=== PATIENT | female | born 1965 | race Caucasian/White ===

== ENCOUNTER 2017-11-07 07:18 | Inpatient (IN) ==
[2017-11-07] MEDS ORDERED: Morphine Inj 4 MG/ML Vial IV.PUSH ONE ×2 (07:46→09:00)
[2017-11-07] MEDS ORDERED: LORazepam 1 MG Tablet PO PRN (07:48)
[2017-11-07] MEDS ORDERED: Haloperidol Inj 5 MG/ML Ampul IV.PUSH PRN (07:48)
--- NOTE | 2017-11-07 08:05 | ED ---
HPI General Chief Complaint: Abdominal Pain Stated Complaint: abd pain x 3 hrs- bilat back pains Time Seen by Provider: 11/07/17 07:28 Source: patient Mode of arrival: ambulatory Limitations: no limitations History of Present Illness complaint: abdominal pain Onset (ago): hour(s) (3) Pain Consistency: constant Location: epigastric Severity: severe Quality: aching Radiation: back Relieving factors: other (leaning forward) Exacerbating factors: other (laying down flat on her back) Context: other (admits to 5 drinks/day. h/o pancreatitis.) Associated symptoms: nausea and diarrhea Related Data Home Medications Medication Instructions Recorded Confirmed gemfibrozil 600 mg PO BID 11/07/17 11/07/17 pantoprazole 40 mg PO DAILY 11/07/17 11/07/17 Allergies Allergy/AdvReac Type Severity Reaction Status Date / Time codeine Allergy Severe Rash Verified 11/07/17 07:25 Review of Systems Constitutional Reports system reviewed and no additional complaints, except as [facility] Eyes Reports system reviewed and no additional complaints, except as [facility] ENT Reports system reviewed and no additional complaints, except as [facility] Cardiovascular Reports system reviewed and no additional complaints, except as docu and Reports rapid heart rate Respiratory Reports system reviewed and no additional complaints, except as docu Gastrointestinal Reports abdominal pain, Reports diarrhea and Reports nausea Genitourinary Reports system reviewed and no additional complaints, except as docu Musculoskeletal Reports system reviewed and no additional complaints, except as docu Integumentary/Breasts Reports system reviewed and no additional complaints, except as docu Neurologic Reports tremor(s) Psychiatric Reports system reviewed and no additional complaints, except as docu Endocrine Reports system reviewed and no additional complaints, except as [facility] Hematologic/Lymphatic Reports system reviewed and no additional complaints, except as docu Allergic/Immunologic Reports system reviewed and no additional complaints, except as docu PMFSH History History Provided By: Patient Medical History Medical History ETOH abuse (Acute) GERD (gastroesophageal reflux disease) (Acute) Hyperlipidemia (Acute) Surgical History Surgical History History of cholecystectomy (Acute) Social History Social History Substance History: No History of Abuse Smoking Status: Current every day smoker Tobacco Type: Cigarettes How Often Do You Have a Drink Containing Alcohol: 4 or more times a week Recent Travel in [facility] within the Last 8 Weeks: No Recent Out of Country Travel within the Last 8 Weeks: No Exam Const General: cooperative, well developed and in distress Nutritional Appearance: well nourished Orientation: alert, awake and oriented x3 HENMT Head: normal to inspection, normocephalic and atraumatic Mouth: moist mucous membranes Eyes Alignment and Position: alignment normal Conjunctivae: conjunctivae normal Sclera: sclerae normal EOM: EOM intact bilaterally Neck Neck: normal visual inspection and full ROM Chest Chest: normal inspection of the chest Resp Effort & Inspection: normal respiratory effort Auscultation: clear to auscultation bilaterally Cardio Rate: tachycardic Rhythm: regular rhythm Heart Sounds: S1 normal and S2 normal GI Inspection: normal to inspection Palpation: soft and tender in the epigastrum, in the LUQ and in the RUQ Auscultation: normal bowel sounds Back/Spine/Pelvis Cervical Spine: cervical ROM normal Thoracic/Lumbar Spine: thoraco-lumbar ROM normal Skin General: other (spider angiomas noted on her chest ) Neuro General: alert, awake, oriented x3, moves all extremities and CN's II-XI intact bilaterally Speech: speech normal Motor: tremor Extrem General: normal to inspection and full ROM Psych Appearance: grossly normal Mental Status: mental status grossly normal Speech and Movement: speech and movement normal Mood: congruent mood Affect: normal affect Attitude: cooperative Thought Process: normal Thought Content: normal Judgment: fair Course Consultations Consultation #1: Dr. Cardoza will admit to the hospital for further evaluation and treatment Time: 09:04 Initial Documented Vital Signs Temperature 97.7 F 11/07/17 07:23 Pulse Rate 107 H 11/07/17 07:23 Respiratory Rate 16 11/07/17 07:23 Blood Pressure 137/84 11/07/17 07:23 Pulse Oximetry 99 11/07/17 07:23 Last Documented Vital Signs Temperature 97.7 F 11/07/17 07:23 Pulse Rate 95 H 11/07/17 08:15 Respiratory Rate 20 11/07/17 08:15 Blood Pressure 131/72 11/07/17 08:15 Pulse Oximetry 97 11/07/17 08:15 Medical Decision Making [facility] Narrative Medical decision making narrative: 52 year old female presents to the ED with cc of abdominal pain x 3 hrs. Describes it as severe achy pain that is felt in her epigastric region and radiates around to her back bilaterally. Leaning forward improves the pain. She also has nausea and diarrhea. Denies fever, chills, dysuria. She reports drinking 5 drinks daily and has a history of pancreatitis in the past. Her presentation is most consistent with acute pancreatitis. Will keep patient NPO and start on IV pain management. Will also elder counselor patient on alcohol use cessation. The patient's laboratory and radiographic evaluation is now complete and compatible with pancreatitis. Her history leads one to believe that she has alcoholic pancreatitis. However, she has gallstones on her CT. The patient reported a history of a previous cholecystectomy and has laparotomy scars compatible with a previous cholecystectomy. An ultrasound has subsequently been ordered for further evaluation of this. The patient has also been found to have hyponatremia and hypokalemia. Her potassium is being replaced orally. Medical Screen Exam Complete: Yes Emergency Medical Condition: Yes Differential Diagnosis Differential Diagnosis: acute pancreatitis vs. hepatitis vs. gastritis vs. gastroenteritis vs. peptic ulcer disease Medical Records Medical records reviewed: Yes I reviewed the patient's medical records. Lab Data Lab results reviewed: Yes I reviewed the patient's lab results. Lab results narrative: Electrolytes are compatible with alcoholism. Lipase shows pancreatitis. Result diagrams: 11/07/17 07:43 11/07/17 07:43 Lab Results 11/07/17 11/07/17 11/07/17 Range/Units 07:43 07:43 08:01 CBC w Diff Slide review pending WBC 13.0 H (4.0-11.0) th/mm3 RBC 3.79 L (4.00-5.30) mil/mm3 Hgb 14.2 (11.6-15.3) gm/dL Hct 39.5 (35.0-46.0) % MCV 104.5 H (80.0-100.0) fL MCH 37.5 H (27.0-34.0) pg MCHC 35.9 (32.0-36.0) % RDW 14.2 (11.6-17.2) % Plt Count 162 (150-450) th/mm3 MPV 9.1 (7.0-11.0) fL Neut % (Auto) 72.2 H (16.0-70.0) % Lymph % (Auto) 19.5 (9.0-44.0) % [place] % (Auto) 5.6 (0.0-8.0) % Eos % (Auto) 1.1 (0.0-4.0) % Baso % (Auto) 1.6 (0.0-2.0) % Neut # (Auto) 9.5 H (1.8-7.7) th/mm3 Lymph # (Auto) 2.5 (1.0-4.8) th/mm3 [place] # (Auto) 0.7 (0.0-0.9) th/mm3 Eos # (Auto) 0.1 (0.0-0.4) th/mm3 Baso # (Auto) 0.2 (0.0-0.2) th/mm3 WBC Differential . Diff Scan Auto diff confirmed Differential Comment . Hematology Comments Sodium 127 L (136-145) meq/L Potassium 2.9 L* (3.5-5.1) meq/L Chloride 91 L (98-107) meq/L Carbon Dioxide 17.8 L (21.0-32.0) meq/L Anion Gap 18 H (5-15) meq/L BUN 7 (7-18) mg/dL Creatinine 0.81 (0.50-1.00) mg/dL Estimated GFR 75 L (>89) mL/min Random Glucose 241 H (74-106) mg/dL Calcium (8.5-10.1) mg/dL Total Bilirubin 1.1 H (0.2-1.0) mg/dL AST 88 H (15-37) U/L ALT 69 H (10-53) U/L Alkaline Phosphatase 112 (45-117) U/L Total Protein 7.7 (6.4-8.2) g/dL Albumin 3.3 L (3.4-5.0) g/dL Lipase 8184 H (73-393) U/L Ur Collection Type Clean catch Urine Color Yellow (Yellw/Straw) Urine Clarity Slight H (Clear) Urine pH 5.5 (5.0-8.5) Ur Specific [place] Greater/equal 1.030 (1.002-1.035) Urine Protein 100 H (Neg-Trace) mg/dL Urine Glucose (UA) Negative (Negative) mg/dL Urine Ketones Trace H (Negative) mg/dL Urine Occult Blood Small H (Negative) Urine Nitrate Negative (Negative) Urine Bilirubin Negative (Negative) Urine Ictotest Negative (Negative) Urine Urobilinogen 0.2 (Less than 2) mg/dL Ur Leukocyte Esterase Negative (Negative) Urine RBC 0-3 (0-3) /hpf Ur Squamous Epith Cells 0-5 (0-5) /hpf Amorphous Sediment Few H (None) /hpf Urine Bacteria Moderate H (None) /hpf Hyaline Casts 4-10 H (0-3) /lpf Fine Granular Casts 4-10 H (None) /lpf Micro UA Comment Culture indicated Ur Microscopic Review Microscopic reviewed Urine Culture Comments Culture indicated Imaging Data Radiologist's impression: Abdomen/Pelvis CT 11/07/17 07:46 CONCLUSION: 1. Mild indurative changes adjacent to the pancreatic head and proximal body and around the duodenum. 2. Hepatic steatosis. 3. Gallstones. 4. Mild extrahepatic biliary ductal dilatation. Discharge Plan Discharge Disposition Patient Disposition: 30 Still Patient Discharge Details Diagnosis: Abdominal pain, Acute pancreatitis, Hypokalemia, Acute hyponatremia, Gallstones Physicians Team ED Provider: Barbara Enriquez Primary Care Provider: Primary Care Renate Brownlee Rxs /Orders / Referrals /Forms Prescriptions: No Action gemfibrozil 600 mg Tablet 600 mg PO BID RF: 0 pantoprazole 40 mg Tablet,Delayed Release (Dr/Ec) 40 mg PO DAILY RF: 0 Discharge Interventions Interventions: Vital Signs Last Done: 11/07/17 08:15 Status ED Status: Pending Admission
[2017-11-07 08:08] LABS: Albumin 3.3 g/dL (3.4-5.0); Alkaline Phosphatase 112 U/L (45-117); Anion Gap 18 meq/L (5-15); Carbon Dioxide 17.8 meq/L (21.0-32.0); Chloride 91 meq/L (98-107); Glomerular Filtration Rate 75 mL/min (>89); Glucose,Random 241 mg/dL (74-106); Lipase 8184 U/L (73-393)
[2017-11-07 08:09] LABS: Sodium 127 meq/L (136-145)
[2017-11-07 08:11] LABS: Potassium 2.9 meq/L (3.5-5.1)
[2017-11-07 08:13] LABS: Color,Urine Yellow (Yellw/Straw); Glucose,Urine (UA) Negative (Negative); Leukocyte Esterase,Urine Negative (Negative); Nitrite,Urine Negative (Negative); PH,Urine 5.5 (5.0-8.5); Specific Gravity,Urine Greater/Equal 1.030 (1.002-1.035); Urobilinogen,Urine 0.2 mg/dL (Less than 2)
[2017-11-07] MEDS ORDERED: Sod Chloride 0.9% Inj 1,000 ML IV.SIG SCH (08:15)
[2017-11-07 08:20] LABS: Bilirubin,Urine Negative (Negative); Clarity,Urine Slight (Clear); Ictotest,Urine Negative (Negative)
[2017-11-07] MEDS ORDERED: Potassium Chloride 10 MEQ ER Capsule PO ONE (08:21)
[2017-11-07 08:22] LABS: Bacteria,Urine Moderate /hpf; RBC,Urine 0-3 /hpf (0-3); Squamous Epithelial Cell,Urine 0-5 /hpf (0-5)
[2017-11-07 08:23] LABS: Amorphous Sediment,Urine Few /hpf
[2017-11-07 08:23] LABS: Blood Urea Nitrogen 7 mg/dL (7-18); Total Protein 7.7 g/dL (6.4-8.2)
[2017-11-07 08:28] LABS: Baso # (Auto) 0.2 th/mm3 (0.0-0.2); Baso % (Auto) 1.6 % (0.0-2.0); Eos # (Auto) 0.1 th/mm3 (0.0-0.4); Eos % (Auto) 1.1 % (0.0-4.0); Hematocrit 39.5 % (35.0-46.0); Hemoglobin 14.2 gm/dL (11.6-15.3); Lymph # (Auto) 2.5 th/mm3 (1.0-4.8); Lymph % (Auto) 19.5 % (9.0-44.0); Mean Corpuscular HGB Conc 35.9 % (32.0-36.0); Mean Corpuscular Hemoglobin 37.5 pg (27.0-34.0); Mean Corpuscular Volume 104.5 fL (80.0-100.0); Mean Platelet Volume 9.1 fL (7.0-11.0); Mono # (Auto) 0.7 th/mm3 (0.0-0.9); Mono % (Auto) 5.6 % (0.0-8.0); Neut # (Auto) 9.5 th/mm3 (1.8-7.7); Neut % (Auto) 72.2 % (16.0-70.0); Platelet Count 162 th/mm3 (150-450); Red Blood Count 3.79 mil/mm3 (4.00-5.30); Red Cell Distribution Width 14.2 % (11.6-17.2)
[2017-11-07 08:37] LABS: Alanine Aminotransferase 69 U/L (10-53); Aspartate Aminotransferase 88 U/L (15-37)
--- NOTE | 2017-11-07 08:42 | CT ---
EXAM DATE: 11/07/2017 8:35 AM EDT AGE/SEX: 52 years / Female INDICATIONS: Epigastric pain. Low back pain. Nausea. CLINICAL DATA: This is the patient's initial encounter. Patient reports that signs and symptoms have been present for 1 day and indicates a pain score of 10/10. MEDICAL/SURGICAL HISTORY: Gastroesophageal reflux disease. Cholecystectomy. ORAL CONTRAST: No oral contrast ingested. RADIATION DOSE: 6.93 CTDI (mGy) COMPARISON: [facility], CT ABDOMEN & PELVIS W CONTRAST, 06/23/2012. . TECHNIQUE: Multiple contiguous axial images were obtained through the abdomen and pelvis following b olus infusion of 90 ml Omnipaque 350 (iohexol) nonionic water-soluble contrast as a single exam dos e. No oral contrast ingested. Using automated exposure control and adjustment of the mA and/or kV ac cording to patient size, radiation dose was kept as low as reasonably achievable to obtain optimal di agnostic quality images. DICOM format image data is available electronically for review and comparis on. FINDINGS: Lower Lungs: The visualized lower lungs are clear. Liver: Diffusely diminished attenuation in the liver suggesting steatosis. Gallstones in the gallblad linda. Extrahepatic biliary tree is mildly dilated with common duct exceeding 10 mm Spleen: Homogeneous density without enlargement. Pancreas: There is mild haziness in the peripancreatic tissues around the pancreatic head and proxim al body with some similar hypodensity around the proximal duodenum, possibly minimal fluid. This may reflect mild pancreatitis and/or duodenitis. Kidneys: Normal in size and shape. No evidence of mass or hydronephrosis. Adrenal Glands: Unremarkable. Aorta: The aorta and proximal iliac vessels are grossly unremarkable without aneurysmal dilation. Bowel/Mesentery: The bowel loops are grossly unremarkable. The cecum and sigmoid colon have a normal configuration. Abdominal Wall: Intact. Retroperitoneum: No evidence of adenopathy in the retrocrural, para-aortic, or deep pelvic regions. Bladder: Contours are smooth. Reproductive Organs: Small bilateral adnexal cysts. No free pelvic fluid. Inguinal: The inguinal region is unremarkable without evidence of adenopathy. Bony Structures: Unremarkable. CONCLUSION: 1. Mild indurative changes adjacent to the pancreatic head and proximal body and around the duodenum . 2. Hepatic steatosis. 3. Gallstones. 4. Mild extrahepatic biliary ductal dilatation. Electronically signed by: Juan Eason MD 11/07/2017 8:41 AM EDT
[2017-11-07] MEDS ORDERED: Potassium Chloride 20 MEQ Pwd Pkt PO ONE (09:00)
[2017-11-07] MEDS ORDERED: Acetaminophen 325 MG Tablet PO PRN (09:04)
[2017-11-07] MEDS ORDERED: Bisacodyl 10 MG Supp RECTAL PRN (09:04)
--- NOTE | 2017-11-07 10:40 | US ---
EXAM DATE: 11/07/2017 10:11 AM EDT AGE/SEX: 52 years / Female INDICATIONS: Abnormal CT. CLINICAL DATA: This is the patient's subsequent encounter. Patient reports that signs and symptoms h ave been present for 1 day and indicates a pain score of 8/10. MEDICAL/SURGICAL HISTORY: Gastroesophageal reflux disease. Cholecystectomy. COMPARISON: [facility], CT ABDOMEN & PELVIS W CONTRAST, 06/23/2012. . MEASUREMENTS: Liver:__ 16.8 cm. Common Bile Duct:__ 12mm. FINDINGS: Liver: Increased echotexture without focal lesion or ductal dilation. Portal Vein: Hepatopedal flow seen in portal vein. Common Duct: Dilated slightly greater than a centimeter Gallbladder: Stones present in a small cystic cavity in the region of the medial gallbladder fossa Pancreas: The visualized portions are within normal limits Right Kidney: Normal echotexture and cortical thickness. No mass or hydronephrosis. Other: CONCLUSION: 1. Stones present in presumed dilated cystic duct remnant post stated previous cholecystectomy 2. Extrahepatic biliary ductal dilatation without clear explanation Electronically signed by: Juan Eason MD 11/07/2017 10:38 AM EDT
[2017-11-07] MEDS: Sod Chloride 0.9% Inj 1,000 ML IV.CONT SCH ×2 (11:03→15:14)
[2017-11-07] MEDS: Enoxaparin Inj 40 MG/0.4 ML Syringe SQ SCH (11:24)
--- NOTE | 2017-11-07 11:42 | P.HP ---
History of Present Illness Primary Care Physician: No Primary Care Physician Chief Complaint: Abdominal pain History of Present Illness: 52-year-old female with known history of chronic alcohol abuse, chronic abdominal pain, Gastrosoft reflux who presented to the hospital because acute onset of abdominal pain. Patient states that over the last 6 months she has been experiencing a rather constant abdominal discomfort located in the right upper quadrant under her ribs with associated heartburn. She indicates that in July she did undergo EGD and colonoscopy by a physician located in the [facility]. She does not know the name of the physician. Patient states that she has been tolerating her pain, she did have a CT ordered for further evaluation in September, however due to insurance reasons she was unable to do it. Patient indicates that over the last 6 months her pain has been a 5/10 on a pain scale. When she woke up this morning it was 10/ 10 on a pain scale. Patient indicates this morning that the pain was located in the epigastric region as well as her chronic right upper quadrant pain. She has some nausea and dry heaves. Denied any hematemesis, patient states that she has chronic diarrhea is been no change in her bowel movements. Denies any melena or hematochezia. Patient had workup done emergency department found to have multiple medical problems related to her abdominal pain, alcohol use. Patient states that she drinks anywhere from 3-10 mixed drinks daily. The longest that she is ever gone without alcohol was 3 days. - Diagnosis (1) Sepsis (2) Obstruction of cystic duct (3) Abdominal pain (4) Acute pancreatitis (5) Hypokalemia (6) Acute hyponatremia (7) Urinary tract infection (8) Metabolic acidosis, increased anion gap Inpatient Certification: I certify that the inpatient services were ordered in accordance with Medicare regulations governing the order. This includes certification that hospital inpatient services are reasonable and necessary and in the case of services not specified as inpatient-only under 42 CFR 419.22(n), that they are appropriately provided as inpatient services in accordance to with the 2-midnight benchmark under 43 CFR 412.3(e) Estimated Total Length of Stay (Days): 3 Plans for Post Hospital Care: Home Review of Systems All other systems reviewed negative except as stated in HPI Gastrointestinal: Reports abdominal pain, Reports nausea, Reports vomiting PMFSH - History History Provided By: Patient - Medical History Medical History: Medical History (Last Reviewed 11/07/17 @ 11:41 by NORY Guerra) ETOH abuse GERD (gastroesophageal reflux disease) Hyperlipidemia - Surgical History Surgical History: Surgical History (Last Reviewed 11/07/17 @ 11:41 by NORY Guerra) History of cholecystectomy History of colonoscopy History of esophagogastroduodenoscopy - Family History Family History: Family History (Last Updated 11/07/17 @ 11:35 by NORY Guerra) Father History of alcoholism History of heart disease Mother History of alcoholism History of lung cancer History of breast cancer - Tobacco History Tobacco Use In Past 30 Days: Yes Smoking Status: Current every day smoker Tobacco Type: Cigarettes - Alcohol History How Often Do You Have a Drink Containing Alcohol: 4 or more times a week ( Patient drinks 3-10 white Russians daily) - Substance Use History Substance History: No History of Abuse - Travel History Recent Travel in the [facility] Within the Last 8 Weeks: No Recent Travel Out of the Country Within the Last 8 Weeks: No - Immunization History Tetanus Immunization: <5 Years Hx Influenza Vaccine This Season: No Medications and Allergies Active Medications: Active Medications Acetaminophen (Tylenol) 650 mg PO Q4H PRN PRN Reason: Headache, fever, pain 1-5 Al Hydroxide/Mg Hydroxide (Milk Of Magnesia Liq) 30 ml PO Q12H PRN PRN Reason: Mild Constipation Bisacodyl (Dulcolax Supp) 10 mg RECTAL DAILY PRN PRN Reason: SEVERE CONSITIPATION Enoxaparin Sodium (Lovenox Inj) 40 mg SQ Q24H [facility] Last Admin: 11/07/17 11:24 Dose: 40 mg Flumazenil (Romazecon Inj) 0.2 mg IV.PUSH Q1M PRN PRN Reason: OVERSEDATION Haloperidol Lactate (Haldol Inj) 1 mg IV.PUSH Q15M PRN PRN Reason: for severe agitation Sodium Chloride (Ns Inj) 1,000 mls @ 0 mls/hr IV.SIG BOLUS [facility] Last Infusion: 11/07/17 10:00 Dose: Infused Sodium Chloride (Ns Inj) 1,000 mls @ 200 mls/hr IV.CONT .Q5H [facility] Stop: 11/08/17 09:14 Last Admin: 11/07/17 11:03 Dose: 200 mls/hr Lactulose (Lactulose Liq) 30 ml PO DAILY PRN PRN Reason: SEVERE CONSITIPATION Lorazepam (Ativan Inj) 1 mg IV.PUSH Q4H PRN PRN Reason: for CIWA 8-10 Last Admin: 11/07/17 11:12 Dose: 1 mg Lorazepam (Ativan Inj) 2 mg IV.PUSH Q15M PRN PRN Reason: for CIWA > 20 Lorazepam (Ativan Inj) 2 mg IV.PUSH Q2H PRN PRN Reason: for CIWA 11-14 Lorazepam (Ativan) 1 mg PO Q4H PRN PRN Reason: for CIWA 8-10 Lorazepam (Ativan) 2 mg PO Q2H PRN PRN Reason: for CIWA 11-14 Lorazepam (Ativan Inj) 2 mg IV.PUSH Q1H PRN PRN Reason: for CIWA 15-20 Morphine Sulfate (Morphine Inj) 4 mg IV.PUSH Q4H PRN PRN Reason: BREAKTHROUGH PAIN Ondansetron HCl (Zofran Inj) 4 mg IV.PUSH Q6H PRN PRN Reason: NAUSEA OR VOMITING Oxycodone/Acetaminophen (Percocet 7.5/325 Mg) 1 tab PO Q6H PRN PRN Reason: Pain 6-10. Last Admin: 11/07/17 11:23 Dose: 1 tab Sennosides (Senokot) 17.2 mg PO Q12H PRN PRN Reason: Moderate Constipation Sodium Chloride (Ns Flush) 2 ml IV.FLUSH PRN PRN PRN Reason: FLUSH AFTER USING IV ACCESS Allergies Allergy/AdvReac Type Severity Reaction Status Date / Time codeine Allergy Severe Rash Verified 11/07/17 07:25 Home Medications Medication Instructions Recorded Confirmed Type gemfibrozil 600 mg PO BID 11/07/17 11/07/17 History pantoprazole 40 mg PO DAILY 11/07/17 11/07/17 History Exam Vital signs: Vital Signs 11/07/17 07:23 11/07/17 08:00 11/07/17 08:15 Temperature 97.7 F Pulse Rate 107 H 95 H Respiratory Rate 16 20 20 Blood Pressure 137/84 131/72 Pulse Oximetry 99 97 11/07/17 10:13 11/07/17 10:45 11/07/17 11:08 Temperature 98.3 F 98 F Pulse Rate 96 H 95 H Respiratory Rate 20 18 20 Blood Pressure 147/75 H 144/72 H Pulse Oximetry 98 98 Intake & Output 11/06/17 11/07/17 11/07/17 18:59 06:59 18:59 Intake Total 1000 / 1000 Balance 1000 / 1000 Weight 60.7 kg Intake: IV 1000 / 1000 NS Inj 1,000 ML @ Wide Open IV. 1000 / 1000 SIG BOLUS [facility] Rx#:[id number] Other: Weight On Admission 60.7 kg Narrative: GENERAL: Well-developed, well-nourished, patient appears to be either painful or in alcohol withdrawals. alert and orientated HEENT: Head is normocephalic without any lesions or masses noted. Facial features are symmetric. Eyes: Pupils equal round reactive to light. Extraocular muscles are intact. Conjunctivae were clear. Lateral nystagmus noted oropharyngeal: Pharynx without any erythema edema. Tongue is midline without deviation. Buccal mucosa is moist without any masses or lesions NECK: Supple without any masses. Trachea midline no deviation. No JVD, no bruits are appreciated CARDIAC: Regular rhythm, regular rate. S1/S2 are heard. No murmurs gallops or rubs. LUNGS: Clear to auscultation bilaterally. No wheeze, rhonchi or rales. No use of accessory muscles on inspiration or expiration. ABDOMEN: Soft, epigastric tenderness. Nondistended. Bowel sounds heard in all 4 quadrants. No organomegaly or masses. Negative rebound, negative guarding EXTREMITIES: No edema, pulses are equal bilaterally. No cyanosis or clubbing NEUROLOGY: Mood and affect appear appropriate. Cranial nerves II through XII grossly intact. Muscle strength 5/5 in upper and lower extremities bilaterally. Deep tendon reflexes are 2+ in upper and lower extremities bilaterally. 2+ extremity tremor Results - Labs CBC & Chem 7: 11/07/17 07:43 11/07/17 07:43 Labs: Laboratory Results - last 24 hr 11/07/17 11/07/17 11/07/17 07:43 07:43 08:01 CBC w Diff Slide review pending WBC 13.0 H RBC 3.79 L Hgb 14.2 Hct 39.5 MCV 104.5 H MCH 37.5 H MCHC 35.9 RDW 14.2 Plt Count 162 MPV 9.1 Neut % (Auto) 72.2 H Lymph % (Auto) 19.5 [place] % (Auto) 5.6 Eos % (Auto) 1.1 Baso % (Auto) 1.6 Neut # (Auto) 9.5 H Lymph # (Auto) 2.5 [place] # (Auto) 0.7 Eos # (Auto) 0.1 Baso # (Auto) 0.2 WBC Differential . Diff Scan Auto diff confirmed Differential Comment . Hematology Comments Sodium 127 L Potassium 2.9 L* Chloride 91 L Carbon Dioxide 17.8 L Anion Gap 18 H BUN 7 Creatinine 0.81 Estimated GFR 75 L Random Glucose 241 H Calcium Total Bilirubin 1.1 H AST 88 H ALT 69 H Alkaline Phosphatase 112 Total Protein 7.7 Albumin 3.3 L Lipase 8184 H Ur Collection Type Clean catch Urine Color Yellow Urine Clarity Slight H Urine pH 5.5 Ur Specific [place] Greater/equal 1.030 Urine Protein 100 H Urine Glucose (UA) Negative Urine Ketones Trace H Urine Occult Blood Small H Urine Nitrate Negative Urine Bilirubin Negative Urine Ictotest Negative Urine Urobilinogen 0.2 Ur Leukocyte Esterase Negative Urine RBC 0-3 Ur Squamous Epith Cells 0-5 Amorphous Sediment Few H Urine Bacteria Moderate H Hyaline Casts 4-10 H Fine Granular Casts 4-10 H Micro UA Comment Culture indicated Ur Microscopic Review Microscopic reviewed Urine Culture Comments Culture indicated - Imaging Impressions Abdomen/Pelvis CT 11/07/17 07:46 CONCLUSION: 1. Mild indurative changes adjacent to the pancreatic head and proximal body and around the duodenum. 2. Hepatic steatosis. 3. Gallstones. 4. Mild extrahepatic biliary ductal dilatation. Gallbladder Ultrasound 11/07/17 08:59 CONCLUSION: 1. Stones present in presumed dilated cystic duct remnant post stated previous cholecystectomy 2. Extrahepatic biliary ductal dilatation without clear explanation Caprini VTE Risk Assessment Caprini VTE Risk Assessment: No/Low Risk (score <= 1) Caprini Risk Assessment Model: Point Value = 1 Point Value = 2 Point Value = 3 Point Value = 5 Age 41-60 Minor surgery BMI > 25 kg/m2 Swollen legs Varicose veins or History of unexplained or recurrent spontaneous Oral contraceptives or hormone replacement Sepsis (< 1 month) Serious lung disease, including pneumonia (< 1 month) Abnormal pulmonary function Acute myocardial infarction Congestive heart failure (< 1 month) History of inflammatory bowel disease Medical patient at bed rest Age 61-74 Arthroscopic surgery Major open surgery (> 45 min) Laparoscopic surgery (> 45 min) Malignancy Confined to bed (> 72 hours) Immobilizing plaster cast Central venous access Age >= 75 History of VTE Family history of VTE Factor V Leiden Prothrombin [id number] Lupus anticoagulant Anticardiolipin antibodies Elevated serum homocysteine Heparin-induced thrombocytopenia Other congenital or acquired thrombophilia Stroke (< 1 month) Elective arthroplasty Hip, pelvis, or leg fracture Acute spinal cord injury (< 1 month) Prophylaxis Regimen: Total Risk Factor Score Risk Level Prophylaxis Regimen 0-1 Low Early ambulation 2 Moderate Order ONE of the following: *Sequential Compression Device (SCD) *Heparin 5000 units SQ BID 3-4 Higher Order ONE of the following medications: *Heparin 5000 units SQ TID *Enoxaparin/Lovenox 40 mg SQ daily (WT < 150 kg, CrCl > 30 mL/min) *Enoxaparin/Lovenox 30 mg SQ daily (WT < 150 kg, CrCl > 10-29 mL/min) *Enoxaparin/Lovenox 30 mg SQ BID (WT < 150 kg, CrCl > 30 mL/min) AND/OR *Sequential Compression Device (SCD) 5 or more Highest Order ONE of the following medications: *Heparin 5000 units SQ TID (Preferred with Epidurals) *Enoxaparin/Lovenox 40 mg SQ daily (WT < 150 kg, CrCl > 30 mL/min) *Enoxaparin/Lovenox 30 mg SQ daily (WT < 150 kg, CrCl > 10-29 mL/min) *Enoxaparin/Lovenox 30 mg SQ BID (WT < 150 kg, CrCl > 30 mL/min) AND *Sequential Compression Device (SCD) Assessment and Plan - Assessment (1) Sepsis Code(s): A41.9 - Sepsis, unspecified organism Status: Acute (2) Obstruction of cystic duct Code(s): K82.0 - Obstruction of gallbladder Status: Acute (3) Abdominal pain Code(s): R10.9 - Unspecified abdominal pain Status: Acute (4) Acute pancreatitis Code(s): K85.90 - Acute pancreatitis without necrosis or infection, unspecified Status: Acute (5) Hypokalemia Code(s): E87.6 - Hypokalemia Status: Acute (6) Acute hyponatremia Code(s): E87.1 - Hypo-osmolality and hyponatremia Status: Acute (7) Urinary tract infection Code(s): N39.0 - Urinary tract infection, site not specified Status: Acute (8) Metabolic acidosis, increased anion gap Code(s): E87.2 - Acidosis Status: Acute - Plan 52-year-old female who originally presented to the hospital because of abdominal pain which is multifactorial with pancreatitis, cystic duct obstruction with systemic inflammatory response syndrome Sepsis -Patient with leukocytosis, tachycardia, urinary tract infection -We will need to check lactic acid level, chest x-ray -Obtain blood cultures -Start Zosyn Cystic duct obstruction -Patient does have history cholecystectomy -CT scan does indicate gallstones -Gallbladder ultrasound indicate stones president and presumed dilated cystic duct remnant status post previous cholecystectomy, extrahepatic ductal dilatation without clear explanation -GI consulted for further recommendations Acute pancreatitis -Could be secondary to alcohol use and/or obstruction -Continue supportive treatment with IV fluids, pain control, n.p.o. -Obtain triglyceride level -Follow lipase level -GI consulted for further recommendations Chronic alcohol use -Patient counseled on cessation -CIWA protocol -Start thiamine and folic acid IV daily Metabolic acidosis with anion gap -Could be alcohol induced acidosis, sepsis -Continue IV fluids -Continue monitor BMP every 6 hours Electrolyte abnormalities to include hyponatremia, hypokalemia -Continue monitor and replete as needed Hyperglycemia -Check hemoglobin A1c -Accu-Cheks with sliding scale insulin DVT prevention -Sequential compression devices (3) Abdominal pain Qualifiers: Abdominal location: generalized Qualified Code(s): R10.84 - Generalized abdominal pain (4) Acute pancreatitis Qualifiers: Pancreatitis type: alcohol induced Acute pancreatitis complication: no infection or necrosis Qualified Code(s): K85.20 - Alcohol induced acute pancreatitis without necrosis or infection
[2017-11-07] MEDS: Morphine Inj 4 MG/ML Vial IV.PUSH PRN ×3 (12:35→21:57)
[2017-11-07] MEDS ORDERED: Dextrose 50% in Water 50 ML Vial IV.PUSH PRN (13:17)
--- NOTE | 2017-11-07 14:28 | XR ---
EXAM DATE: 11/07/2017 1:35 PM EDT AGE/SEX: 52 years / Female INDICATIONS: Shortness of breath. CLINICAL DATA: This is the patient's initial encounter. Patient reports that signs and symptoms have been present for 1 day and indicates a pain score of 0/10. MEDICAL/SURGICAL HISTORY: Sepsis. Gastroesophageal reflux disease. . Cholecystectomy. COMPARISON: POI, XR CHEST PA AND LAT, 06/20/2015. . FINDINGS: A single AP view of the chest demonstrates the lungs to be symmetrically aerated without evidence of mass, infiltrate or effusion. The cardiomediastinal contours are unremarkable. Osseous structures a re intact. CONCLUSION: No acute disease Electronically signed by: Juan Eason MD 11/07/2017 2:27 PM EDT
[2017-11-07] MEDS: Piperacil/Tazo 3.375 GM Premix 50 ML IV.SIG SCH ×2 (15:13→20:58)
[2017-11-07] MEDS: Multivitamin Inj 10 ML, Thiamine Inj 100 MG, Folic Acid Inj 1 MG in Sodium Chlor 0.9% I... IV.SIG SCH (15:51)
[2017-11-07 15:56] LABS: Activated Partial Thrombo Time 34.3 sec (24.3-30.1); INR 1.2 Ratio
[2017-11-07 16:14] LABS: Anion Gap 14 meq/L (5-15); Blood Urea Nitrogen 4 mg/dL (7-18); Calcium 5.2 mg/dL (8.5-10.1); Carbon Dioxide 17.6 meq/L (21.0-32.0); Chloride 102 meq/L (98-107); Glomerular Filtration Rate Greater Than 89 mL/min (>89); Glucose,Random 201 mg/dL (74-106); Potassium 3.3 meq/L (3.5-5.1)
[2017-11-07 16:15] LABS: Prothrombin Time 12.2 sec (9.8-11.6); Sodium 134 meq/L (136-145)
[2017-11-07 16:26] LABS: Total Protein 6.8 g/dL (6.4-8.2)
[2017-11-07] MEDS ORDERED: Calcium Chloride Inj 2 GM in Sodium Chlor 0.9% Inj 100 ML IV.SIG ONE (17:00)
[2017-11-07] MEDS: Insulin NovoLOG Aspart Correctional Sugar Inj SQ SCH ×2 (17:25→21:57)
[2017-11-07 18:11] LABS: Triglycerides 864 mg/dL (42-150)
[2017-11-07 19:50] LABS: Potassium 3.9 meq/L (3.5-5.1)
[2017-11-07 20:01] LABS: Calcium 7.8 mg/dL (8.5-10.1); Carbon Dioxide 11.6 meq/L (21.0-32.0)
[2017-11-07 21:04] LABS: Hemoglobin A1c 6.3 % (4.3-6.0)
[2017-11-08 01:38] LABS: Chloride 108 meq/L (98-107); Potassium 3.5 meq/L (3.5-5.1); Sodium 138 meq/L (136-145)
[2017-11-08] MEDS: Piperacil/Tazo 3.375 GM Premix 50 ML IV.SIG SCH ×4 (02:28→20:12)
[2017-11-08 02:29] LABS: Albumin 2.2 g/dL (3.4-5.0); Alkaline Phosphatase 83 U/L (45-117); Anion Gap 14 meq/L (5-15); Blood Urea Nitrogen 4 mg/dL (7-18); Calcium 5.6 mg/dL (8.5-10.1); Carbon Dioxide 16.5 meq/L (21.0-32.0); Glomerular Filtration Rate Greater Than 89 mL/min (>89); Glucose,Random 147 mg/dL (74-106); Lipase 2389 U/L (73-393); Total Protein 5.8 g/dL (6.4-8.2)
[2017-11-08 02:30] LABS: Aspartate Aminotransferase 39 U/L (15-37)
[2017-11-08 02:31] LABS: Alanine Aminotransferase 83 U/L (10-53)
[2017-11-08] MEDS ORDERED: Calcium Chloride Inj 2 GM in Dextrose 5% in Water Inj 100 ML IV.SIG ONE ×2 (06:00)
[2017-11-08] MEDS: Morphine Inj 4 MG/ML Vial IV.PUSH PRN ×4 (06:29→20:30)
[2017-11-08 07:57] LABS: Hematocrit 37.1 % (35.0-46.0); Hemoglobin 12.7 gm/dL (11.6-15.3); Mean Corpuscular HGB Conc 34.2 % (32.0-36.0); Mean Corpuscular Hemoglobin 36.6 pg (27.0-34.0); Mean Platelet Volume 8.4 fL (7.0-11.0); Platelet Count 117 th/mm3 (150-450); Red Blood Count 3.47 mil/mm3 (4.00-5.30); Red Cell Distribution Width 14.6 % (11.6-17.2); White Blood Count 10.3 th/mm3 (4.0-11.0)
[2017-11-08 08:29] LABS: Eosinophils 2 % (0-4); Lymphocytes 19 % (9-44); Monocytes 4 % (0-8); Platelet Morphology Normal (Normal)
[2017-11-08] MEDS: Insulin NovoLOG Aspart Correctional Sugar Inj SQ SCH ×4 (08:47→22:27)
--- NOTE | 2017-11-08 11:40 | P.PN ---
Subjective Interval history: 52-year-old female who is seen and examined today for follow-up on pancreatitis , possible common bile duct obstruction, alcohol withdrawal. Patient was sleeping upon entering the room and looked very comfortable. When she woke tremors. Patient states that she feels like she has improved from yesterday. Vital signs are stable, patient remains afebrile. Physical Exam Vital signs: Vital Signs 11/07/17 11:53 11/07/17 12:37 11/07/17 15:30 Temperature 98.5 F Pulse Rate 96 H Respiratory Rate 18 18 20 Blood Pressure 146/78 H Pulse Oximetry 98 11/07/17 17:02 11/07/17 20:00 11/08/17 00:00 Temperature 99.4 F 99.0 F Pulse Rate 112 H 95 H Respiratory Rate 18 17 18 Blood Pressure 128/85 126/90 Pulse Oximetry 94 L 94 L 11/08/17 02:37 11/08/17 05:57 11/08/17 06:53 Temperature Pulse Rate Respiratory Rate 18 18 18 Blood Pressure Pulse Oximetry 11/08/17 08:00 Temperature 98.6 F Pulse Rate 106 H Respiratory Rate 16 Blood Pressure 106/55 L Pulse Oximetry 95 Intake & Output 11/07/17 11/08/17 11/08/17 18:59 06:59 18:59 Intake Total 2420 / 2420 3911.2 / 3911.2 170 / 170 Balance 2420 / 2420 3911.2 / 3911.2 170 / 170 Weight 60.7 kg 62.9 kg Intake: IV 2420 / 2420 3911.2 / 3911.2 170 / 170 NS + KCl 20 mEq Inj 1,000 ML @ 1999 / 1999 125 mls/hr IV.CONT .Q8H R[facility] Rx# :[id number] NS Inj 1,000 ML @ 200 mls/hr IV 1250 / 1250 1250 / 1250 .CONT .Q5H RUTH Rx#:[id number] Calcium Chloride Inj 2 GM In 120 / 120 D5W Inj 100 ML @ 120 mls/hr IV. SIG ONCE ONE Rx#:[id number] Calcium Chloride Inj 2 GM In NS 120 / 120 Inj 100 ML @ 120 mls/hr IV.SIG ONCE ONE Rx#:[id number] MVI-12 Inj 10 ML Thiamine Inj 511.2 / 511.2 100 MG Folvite Inj 1 MG In NS Inj 500 ML @ 127.8 mls/hr IV. SIG Q24H [facility] Rx#:[id number] Zosyn 3.375 GM Premix 50 ML @ 50 / 50 150 / 150 50 / 50 100 mls/hr IV.SIG Q6H [facility] Rx#: [id number] NS Inj 1,000 ML @ Wide Open IV. 1000 / 1000 SIG BOLUS RUTH Rx#:[id number] Oral 0 / 0 Other: # Voids 1 1 # Bowel Movements 1 Weight On Admission 60.7 kg Narrative: GENERAL: Well-developed, well-nourished, in no acute distress. alert and orientated HEENT: Head is normocephalic without any lesions or masses noted. Facial features are symmetric. Eyes: Extraocular muscles are intact. Conjunctivae were clear. NECK: Supple without any masses. Trachea midline no deviation. No JVD, CARDIAC: Regular rhythm, regular rate. S1/S2 are heard. No murmurs gallops or rubs. LUNGS: Clear to auscultation bilaterally. No wheeze, rhonchi or rales. No use of accessory muscles on inspiration or expiration. ABDOMEN: Soft, nontender. Nondistended. Bowel sounds heard in all 4 quadrants. No organomegaly or masses. Negative rebound, negative guarding EXTREMITIES: No edema, pulses are equal bilaterally. No cyanosis or clubbing NEUROLOGY: Mood and affect appear appropriate. Cranial nerves II through XII grossly intact. Moving all extremities, speech is clear. Patient does have 1+ extremity tremors Results - Labs CBC & Chem 7: 11/08/17 06:50 11/08/17 01:20 Laboratory Results - last 24 hr 11/07/17 11/07/17 11/07/17 14:45 14:45 14:45 CBC w Diff WBC RBC Hgb Hct MCV MCH MCHC RDW Plt Count MPV WBC Differential Seg Neuts % (Manual) Lymphocytes % (Manual) Monocytes % (Manual) Eosinophils % (Manual) Abs Neuts (Manual) Differential Comment Platelet Estimate Platelet Morphology PT INR APTT Sodium 134 L Potassium 3.3 L Chloride 102 D Carbon Dioxide 17.6 L Anion Gap 14 BUN 4 L Creatinine 0.59 Estimated GFR Greater than 89 POC Glucose Random Glucose 201 H Hemoglobin A1c 6.3 H Lactic Acid Calcium 5.2 L* Prot Corrected Calcium 5.3 L* Total Bilirubin AST ALT Alkaline Phosphatase Total Protein 6.8 D Albumin Triglycerides 864 H Lipase 11/07/17 11/07/17 11/07/17 14:45 16:58 18:55 CBC w Diff WBC RBC Hgb Hct MCV MCH MCHC RDW Plt Count MPV WBC Differential Seg Neuts % (Manual) Lymphocytes % (Manual) Monocytes % (Manual) Eosinophils % (Manual) Abs Neuts (Manual) Differential Comment Platelet Estimate Platelet Morphology PT 12.2 H INR 1.2 APTT 34.3 H Sodium 136 Potassium 3.9 Chloride 105 Carbon Dioxide 11.6 L Anion Gap 19 H BUN 4 L Creatinine 0.71 Estimated GFR 87 L POC Glucose 171 H Random Glucose 166 H Hemoglobin A1c Lactic Acid Calcium 7.8 L D Prot Corrected Calcium Total Bilirubin AST ALT Alkaline Phosphatase Total Protein Albumin Triglycerides Lipase 11/07/17 11/08/17 11/08/17 21:48 01:20 06:50 CBC w Diff Slide review pending WBC 10.3 RBC 3.47 L Hgb 12.7 Hct 37.1 MCV 107.0 H MCH 36.6 H MCHC 34.2 RDW 14.6 Plt Count 117 L MPV 8.4 WBC Differential Manual diff final Seg Neuts % (Manual) 75 H Lymphocytes % (Manual) 19 Monocytes % (Manual) 4 Eosinophils % (Manual) 2 Abs Neuts (Manual) 7.7 Differential Comment . Platelet Estimate Low L Platelet Morphology Normal PT INR APTT Sodium 138 Potassium 3.5 Chloride 108 H Carbon Dioxide 16.5 L Anion Gap 14 BUN 4 L Creatinine 0.55 Estimated GFR Greater than 89 POC Glucose 172 H Random Glucose 147 H Hemoglobin A1c Lactic Acid Calcium 5.6 L* D Prot Corrected Calcium 6.1 L* Total Bilirubin 0.8 AST 39 H ALT 83 H Alkaline Phosphatase 83 Total Protein 5.8 L D Albumin 2.2 L D Triglycerides Lipase 2389 H 11/08/17 07:48 CBC w Diff WBC RBC Hgb Hct MCV MCH MCHC RDW Plt Count MPV WBC Differential Seg Neuts % (Manual) Lymphocytes % (Manual) Monocytes % (Manual) Eosinophils % (Manual) Abs Neuts (Manual) Differential Comment Platelet Estimate Platelet Morphology PT INR APTT Sodium Potassium Chloride Carbon Dioxide Anion Gap BUN Creatinine Estimated GFR POC Glucose 123 H Random Glucose Hemoglobin A1c Lactic Acid Calcium Prot Corrected Calcium Total Bilirubin AST ALT Alkaline Phosphatase Total Protein Albumin Triglycerides Lipase Microbiology 11/07/17 14:55 Blood - Peripheral Aerobic Blood Culture - Preliminary No growth in 1 day 11/07/17 14:55 Blood - Peripheral Anaerobic Blood Culture - Preliminary No growth in 1 day 11/07/17 14:45 Blood - Peripheral Aerobic Blood Culture - Preliminary No growth in 1 day 11/07/17 14:45 Blood - Peripheral Anaerobic Blood Culture - Preliminary No growth in 1 day - Imaging Impressions Chest X-Ray 11/07/17 00:00 CONCLUSION: No acute disease Assessment and Plan - Assessment (1) Sepsis Code(s): A41.9 - Sepsis, unspecified organism Status: Acute (2) Obstruction of cystic duct Code(s): K82.0 - Obstruction of gallbladder Status: Acute (3) Abdominal pain Code(s): R10.9 - Unspecified abdominal pain Status: Acute (4) Acute pancreatitis Code(s): K85.90 - Acute pancreatitis without necrosis or infection, unspecified Status: Acute (5) Hypokalemia Code(s): E87.6 - Hypokalemia Status: Acute (6) Acute hyponatremia Code(s): E87.1 - Hypo-osmolality and hyponatremia Status: Acute (7) Urinary tract infection Code(s): N39.0 - Urinary tract infection, site not specified Status: Acute (8) Metabolic acidosis, increased anion gap Code(s): E87.2 - Acidosis Status: Acute - Plan 52-year-old female who originally presented to the hospital because of abdominal pain which is multifactorial with pancreatitis, cystic duct obstruction with systemic inflammatory response syndrome Sepsis, resolved -Patient with leukocytosis, tachycardia, urinary tract infection -Chest x-ray did not indicate any acute abnormality -Unable to perform lactic acid level due to lipemia -Blood cultures are negative for 1 day -Continue Zosyn Cystic duct obstruction, common bile duct dilatation -Patient does have history cholecystectomy -CT scan does indicate gallstones -Gallbladder ultrasound indicate stones president and presumed dilated cystic duct remnant status post previous cholecystectomy, extrahepatic ductal dilatation without clear explanation -GI consulted for further recommendations -MRCP Acute pancreatitis -Could be secondary to alcohol use and/or obstruction -Continue supportive treatment with IV fluids, pain control, n.p.o. -Obtain triglyceride level -Follow lipase level, continues to improve -GI consulted for further recommendations Chronic alcohol use -Patient counseled on cessation -CIWA protocol -Continue thiamine and folic acid IV daily Metabolic acidosis with anion gap -Could be alcohol induced acidosis, sepsis -Continue IV fluids -Continue monitor BMP Electrolyte abnormalities to include hyponatremia, hypokalemia -Continue monitor and replete as needed Hyperglycemia -Hemoglobin A1c 6.3 -Accu-Cheks with sliding scale insulin DVT prevention -Sequential compression devices (3) Abdominal pain Qualifiers: Abdominal location: generalized Qualified Code(s): R10.84 - Generalized abdominal pain (4) Acute pancreatitis Qualifiers: Pancreatitis type: alcohol induced Acute pancreatitis complication: no infection or necrosis Qualified Code(s): K85.20 - Alcohol induced acute pancreatitis without necrosis or infection
[2017-11-08] MEDS: Enoxaparin Inj 40 MG/0.4 ML Syringe SQ SCH (11:43)
--- NOTE | 2017-11-08 13:06 | MR ---
EXAM DATE: 11/08/2017 11:26 AM EDT AGE/SEX: 52 years / Female INDICATIONS: Obstruction. CLINICAL DATA: This is the patient's initial encounter. Patient reports that signs and symptoms have been present for 1 day and indicates a pain score of 5/10. MEDICAL/SURGICAL HISTORY: None. Cholecystectomy. COMPARISON: [facility], CT ABDOMEN & PELVIS W CONTRAST, 11/07/2017. . TECHNIQUE: Multiplanar, multisequence images of the abdomen were obtained without contrast including dedicated cholangiographic images. FINDINGS: Patient has a history of a cholecystectomy and has pancreatitis clinically. By MRCP there is a gallbladder present containing a gallstone in a benign-appearing gallbladder witho ut inflammatory changes. There is mild prominence the common duct at the confluence with the cystic duct. There are no common duct stones identified. The liver is free of focal defects There is edema in the pancreas worse in the head extending into the body of the pancreas without pseu docyst formation. There is mild dilatation of the pancreatic duct. There is minimal edema in the less er sac Right and left kidneys are unremarkable without renal mass. There is no ascites as yet. CONCLUSION: 1. Gallbladder containing a single gallstone in spite of the history of cholecystectomy 2. Pancreatitis head of the pancreas without focal mass 3. Mild prominence to the common duct at the confluence with the cystic duct. There are no stones id entified. 4. Findings have been discussed with Dr. Chavez on today's date. Electronically signed by: Jamir Bourne MD 11/08/2017 1:04 PM EDT
[2017-11-08] MEDS: Multivitamin Inj 10 ML, Thiamine Inj 100 MG, Folic Acid Inj 1 MG in Sodium Chlor 0.9% I... IV.SIG SCH (15:29)
[2017-11-08 15:33] LABS: Chloride 111 meq/L (98-107); Potassium 3.6 meq/L (3.5-5.1); Sodium 140 meq/L (136-145)
[2017-11-08 15:49] LABS: Anion Gap 9 meq/L (5-15); Blood Urea Nitrogen 6 mg/dL (7-18); Carbon Dioxide 19.7 meq/L (21.0-32.0); Glomerular Filtration Rate Greater Than 89 mL/min (>89); Glucose,Random 126 mg/dL (74-106)
[2017-11-08 15:52] LABS: Calcium 6.2 mg/dL (8.5-10.1)
[2017-11-08 16:06] LABS: Total Protein 5.7 g/dL (6.4-8.2)
[2017-11-08] MEDS ORDERED: Calcium Gluconate Inj 2 GM in Dextrose 5% in Water Inj 100 ML IV.SIG ONE ×2 (16:13)
--- NOTE | 2017-11-08 19:24 | MB ---
cc: Hiwot Chavez MD DATE: 11/08/2017 REASON FOR REFERRAL: Abdominal pain. HISTORY OF PRESENT ILLNESS: Thank you for the consultation. This is a 52-year-old female who came in complaining of severe abdominal pain in the midepigastric area radiating to the back. The patient does drink alcohol on a daily basis, large amount, at least 5-6 drinks. The patient apparently had a laparoscopic cholecystectomy done a few years ago by Dr. Ellis. The patient has nausea and heartburn. She has mild tremors. She said the pain was 10/10. Now it is about 6-7/10 and worse when she was eating and with movement. Denied GI bleed. No other GI symptoms. PAST MEDICAL HISTORY: 1. Significant for reflux, alcohol abuse. 2. Hyperlipidemia. 3. Colonoscopy in the past. PAST SURGICAL HISTORY: 1. Cholecystectomy. 2. Upper endoscopy. FAMILY HISTORY: Significant for heart disease, alcoholism, lung cancer, and breast cancer. SOCIAL HISTORY: Positive for tobacco a large amount of alcohol. No drugs. MEDICATIONS: Reviewed in the chart. ALLERGIES: CODEINE. REVIEW OF SYSTEMS: All 12-point negative except for HPI. PHYSICAL EXAMINATION: GENERAL: Alert, oriented. No acute distress. VITAL SIGNS: Stable. HEENT: Pupils are round, reactive to light. NECK: Supple. CHEST: Clear. CARDIAC: Regular rate and rhythm. ABDOMEN: Soft. Diffuse tenderness in the midepigastric and upper abdomen. Positive bowel sounds, mild rebound. EXTREMITIES: No edema, clubbing or cyanosis. NEUROLOGIC: Intact. PSYCHOLOGIC: Appropriate. LABORATORY DATA: White count 10.3, hemoglobin 12.7, platelet 117, down from 162. INR 1.2. Calcium 6.2, AST 38, ALT 83, total bilirubin 0.9, lipase 2389, albumin 2.2. CT of the abdomen: Mild changes in the head of the pancreas consistent with pancreatitis, steatosis of the liver, gallstones, mild extrahepatic bile duct dilatation. DIAGNOSTIC DATA: The patient also had an ultrasound which showed a stone present in a presumed dilated cystic duct remnant post-cholecystectomy, extrahepatic biliary duct dilatation without clear explanation. The patient had an MRCP, which showed gallbladder containing single gallstone, despite the history, pancreatitis in the head of the pancreas, common bile duct is minimally dilated most likely, no abnormality as far as stone. ASSESSMENT AND PLAN: A 52-year-old lady with biliary pancreatitis, the patient stated that she had gallbladder resection in the past. I cannot access the records from [facility], but she seems to think that she was told that it was not removed completely, so I am not sure if there was an issue during the surgery. We will try to get the old record. Meanwhile, her liver enzymes are not showing obstructive picture and her pancreatitis is most likely related to heavy alcohol, the patient needs to be abstinent of alcohol, we need to monitor her for DT, we will monitor her lab. Continue hydration and pain medications. MD RILEY Gregg/julita , 05:04 PM , 05:18 PM
[2017-11-09] MEDS: Piperacil/Tazo 3.375 GM Premix 50 ML IV.SIG SCH ×4 (02:41→19:35)
[2017-11-09] MEDS: Morphine Inj 4 MG/ML Vial IV.PUSH PRN ×3 (02:48→11:02)
[2017-11-09 08:53] LABS: Hematocrit 31.5 % (35.0-46.0); Hemoglobin 10.6 gm/dL (11.6-15.3); Mean Corpuscular HGB Conc 33.8 % (32.0-36.0); Mean Corpuscular Hemoglobin 36.5 pg (27.0-34.0); Mean Corpuscular Volume 107.8 fL (80.0-100.0); Mean Platelet Volume 8.4 fL (7.0-11.0); Platelet Count 112 th/mm3 (150-450); Red Blood Count 2.92 mil/mm3 (4.00-5.30); Red Cell Distribution Width 14.2 % (11.6-17.2); White Blood Count 8.2 th/mm3 (4.0-11.0)
[2017-11-09] MEDS: Insulin NovoLOG Aspart Correctional Sugar Inj SQ SCH ×4 (09:01→22:06)
[2017-11-09 09:17] LABS: Eosinophils 2 % (0-4); Lymphocytes 14 % (9-44); Monocytes 7 % (0-8)
[2017-11-09 09:19] LABS: Platelet Morphology Normal (Normal)
[2017-11-09 10:32] LABS: Chloride 113 meq/L (98-107); Potassium 3.1 meq/L (3.5-5.1); Sodium 144 meq/L (136-145)
[2017-11-09 10:48] LABS: Thyroid Stimulating Hormone 2.62 uIU/mL (0.358-3.740)
[2017-11-09 11:01] LABS: Anion Gap 12 meq/L (5-15); Blood Urea Nitrogen 6 mg/dL (7-18); Calcium 5.9 mg/dL (8.5-10.1); Carbon Dioxide 19.1 meq/L (21.0-32.0); Glomerular Filtration Rate Greater Than 89 mL/min (>89); Glucose,Random 89 mg/dL (74-106); Lipase 1293 U/L (73-393)
[2017-11-09] MEDS: Enoxaparin Inj 40 MG/0.4 ML Syringe SQ SCH (11:02)
[2017-11-09 12:17] LABS: Total Protein 5.6 g/dL (6.4-8.2)
[2017-11-09] MEDS ORDERED: Calcium Chloride Inj 2 GM in Dextrose 5% in Water Inj 100 ML IV.SIG ONE ×2 (12:22)
[2017-11-09] MEDS ORDERED: Potassium Chloride 25 MEQ Effervescent Tablet PO ONE (12:23)
--- NOTE | 2017-11-09 12:28 | P.PN ---
Subjective Interval history: 52-year-old female who is seen and examined today for follow-up on pancreatitis , electrolyte abnormalities. Vital signs are stable, patient remains afebrile Physical Exam Vital signs: Vital Signs 11/08/17 16:00 11/08/17 20:00 11/09/17 00:00 Temperature 98.0 F 98.9 F 98.4 F Pulse Rate 106 H 107 H 95 H Respiratory Rate 18 18 16 Blood Pressure 96/54 L 116/51 L 107/52 L Pulse Oximetry 96 98 98 11/09/17 01:10 11/09/17 04:09 11/09/17 05:35 Temperature Pulse Rate Respiratory Rate 18 18 18 Blood Pressure Pulse Oximetry 11/09/17 08:00 Temperature 98.8 F Pulse Rate 98 H Respiratory Rate 16 Blood Pressure 105/57 L Pulse Oximetry 96 Intake & Output 11/08/17 11/09/17 11/09/17 18:59 06:59 18:59 Intake Total 220 / 220 2731.2 / 2731.2 150 / 150 Balance 220 / 220 2731.2 / 2731.2 150 / 150 Weight 63.7 kg Intake: IV 220 / 220 2731.2 / 2731.2 150 / 150 NS + KCl 20 mEq Inj 1,000 ML @ 2000 / 2000 100 / 100 125 mls/hr IV.CONT .Q8H [facility] Rx# :[id number] Calcium Chloride Inj 2 GM In 120 / 120 D5W Inj 100 ML @ 120 mls/hr IV. SIG ONCE ONE Rx#:[id number] Calcium Gluconate Inj 2 GM In 120 / 120 D5W Inj 100 ML @ 120 mls/hr IV. SIG ONCE ONE Rx#:[id number] MVI-12 Inj 10 ML Thiamine Inj 511.2 / 511.2 100 MG Folvite Inj 1 MG In NS Inj 500 ML @ 127.8 mls/hr IV. SIG Q24H [facility] Rx#:[id number] Zosyn 3.375 GM Premix 50 ML @ 100 / 100 100 / 100 50 / 50 100 mls/hr IV.SIG Q6H [facility] Rx#: [id number] Other: # Voids 1 # Urine Diapers 3 Date of Last Bowel Movement 11/08/17 Narrative: GENERAL: Well-developed, well-nourished, in no acute distress. alert and orientated HEENT: Head is normocephalic without any lesions or masses noted. Facial features are symmetric. Eyes: Extraocular muscles are intact. Conjunctivae were clear. NECK: Supple without any masses. Trachea midline no deviation. No JVD, CARDIAC: Regular rhythm, regular rate. S1/S2 are heard. No murmurs gallops or rubs. LUNGS: Clear to auscultation bilaterally. No wheeze, rhonchi or rales. No use of accessory muscles on inspiration or expiration. ABDOMEN: Soft, nontender. Nondistended. Bowel sounds heard in all 4 quadrants. No organomegaly or masses. Negative rebound, negative guarding EXTREMITIES: No edema, pulses are equal bilaterally. No cyanosis or clubbing NEUROLOGY: Mood and affect appear appropriate. Cranial nerves II through XII grossly intact. Moving all extremities, speech is clear. Patient does have 1+ extremity tremors Results - Labs CBC & Chem 7: 11/09/17 08:05 11/09/17 08:05 Laboratory Results - last 24 hr 11/08/17 11/08/17 11/08/17 15:15 16:47 22:26 CBC w Diff WBC RBC Hgb Hct MCV MCH MCHC RDW Plt Count MPV WBC Differential Seg Neuts % (Manual) Band Neuts % (Manual) Lymphocytes % (Manual) Monocytes % (Manual) Eosinophils % (Manual) Basophils % (Manual) Abs Neuts (Manual) Differential Comment Platelet Estimate Platelet Morphology Sodium 140 Potassium 3.6 Chloride 111 H Carbon Dioxide 19.7 L Anion Gap 9 BUN 6 L Creatinine 0.55 Estimated GFR Greater than 89 POC Glucose 145 H 130 H Random Glucose 126 H Calcium 6.2 L* Prot Corrected Calcium 6.8 L* D Total Protein 5.7 L Lipase TSH 11/09/17 11/09/17 11/09/17 08:05 08:05 08:05 CBC w Diff Slide review pending WBC 8.2 RBC 2.92 L Hgb 10.6 L D Hct 31.5 L MCV 107.8 H MCH 36.5 H MCHC 33.8 RDW 14.2 Plt Count 112 L MPV 8.4 WBC Differential Manual diff final Seg Neuts % (Manual) 70 Band Neuts % (Manual) 6 Lymphocytes % (Manual) 14 Monocytes % (Manual) 7 Eosinophils % (Manual) 2 Basophils % (Manual) 1 Abs Neuts (Manual) 6.2 Differential Comment . Platelet Estimate Low L Platelet Morphology Normal Sodium 144 Potassium 3.1 L Chloride 113 H Carbon Dioxide 19.1 L Anion Gap 12 BUN 6 L Creatinine 0.55 Estimated GFR Greater than 89 POC Glucose Random Glucose 89 Calcium 5.9 L* Prot Corrected Calcium 6.6 L* Total Protein 5.6 L Lipase 1293 H TSH 2.620 11/09/17 11/09/17 08:07 11:25 CBC w Diff WBC RBC Hgb Hct MCV MCH MCHC RDW Plt Count MPV WBC Differential Seg Neuts % (Manual) Band Neuts % (Manual) Lymphocytes % (Manual) Monocytes % (Manual) Eosinophils % (Manual) Basophils % (Manual) Abs Neuts (Manual) Differential Comment Platelet Estimate Platelet Morphology Sodium Potassium Chloride Carbon Dioxide Anion Gap BUN Creatinine Estimated GFR POC Glucose 88 84 Random Glucose Calcium Prot Corrected Calcium Total Protein Lipase TSH Microbiology 11/07/17 14:55 Blood - Peripheral Aerobic Blood Culture - Preliminary No growth in 2 days 11/07/17 14:55 Blood - Peripheral Anaerobic Blood Culture - Preliminary No growth in 2 days 11/07/17 14:45 Blood - Peripheral Aerobic Blood Culture - Preliminary No growth in 2 days 11/07/17 14:45 Blood - Peripheral Anaerobic Blood Culture - Preliminary No growth in 2 days 11/07/17 08:01 Clean Catch Urine Urine Culture - Final 50-100,000 cfu/mL mixed sanya (probable contaminants ) - Imaging Impressions Cholangiopancreatography MRI 11/08/17 08:37 CONCLUSION: 1. Gallbladder containing a single gallstone in spite of the history of cholecystectomy 2. Pancreatitis head of the pancreas without focal mass 3. Mild prominence to the common duct at the confluence with the cystic duct. There are no stones identified. 4. Findings have been discussed with Dr. Chavez on today's date. Assessment and Plan - Assessment (1) Sepsis Code(s): A41.9 - Sepsis, unspecified organism Status: Acute (2) Obstruction of cystic duct Code(s): K82.0 - Obstruction of gallbladder Status: Acute (3) Abdominal pain Code(s): R10.9 - Unspecified abdominal pain Status: Acute (4) Acute pancreatitis Code(s): K85.90 - Acute pancreatitis without necrosis or infection, unspecified Status: Acute (5) Hypokalemia Code(s): E87.6 - Hypokalemia Status: Acute (6) Acute hyponatremia Code(s): E87.1 - Hypo-osmolality and hyponatremia Status: Acute (7) Urinary tract infection Code(s): N39.0 - Urinary tract infection, site not specified Status: Acute (8) Metabolic acidosis, increased anion gap Code(s): E87.2 - Acidosis Status: Acute - Plan 52-year-old female who originally presented to the hospital because of abdominal pain which is multifactorial with pancreatitis, cystic duct obstruction with systemic inflammatory response syndrome Acute pancreatitis -Could be secondary to alcohol use and/or obstruction -Continue supportive treatment with IV fluids, pain control, -Follow lipase level, continues to improve -GI consulted for further recommendations -Start clear liquid diet Sepsis, resolved -Patient with leukocytosis, tachycardia, urinary tract infection -Chest x-ray did not indicate any acute abnormality -Unable to perform lactic acid level due to lipemia -Blood cultures are negative for 2 day -Continue Zosyn Cystic duct obstruction, common bile duct dilatation -Patient does have history cholecystectomy -CT scan does indicate gallstones -Gallbladder ultrasound indicate stones president and presumed dilated cystic duct remnant status post previous cholecystectomy, extrahepatic ductal dilatation without clear explanation -GI consulted for further recommendations -MRCP indicates gallbladder containing single stone in spite of history of cholecystectomy. Pancreatitis without focal mass. Prominence to the common duct at the confluence of the cystic duct no stones were identified. Chronic alcohol use -Patient counseled on cessation -[facility] protocol -Continue thiamine and folic acid IV daily Metabolic acidosis with anion gap -Could be alcohol induced acidosis, sepsis -Continue IV fluids -Continue monitor BMP Electrolyte abnormalities to include hyponatremia, hypokalemia -Continue monitor and replete as needed -Obtain PTH, vitamin D levels -Start calcium gluconate 500 mg p.o. twice daily Hyperglycemia -Hemoglobin A1c 6.3 -Accu-Cheks with sliding scale insulin DVT prevention -Sequential compression devices (3) Abdominal pain Qualifiers: Abdominal location: generalized Qualified Code(s): R10.84 - Generalized abdominal pain (4) Acute pancreatitis Qualifiers: Pancreatitis type: alcohol induced Acute pancreatitis complication: no infection or necrosis Qualified Code(s): K85.20 - Alcohol induced acute pancreatitis without necrosis or infection
[2017-11-09] MEDS: chlordiazePOXIDE 25 MG Capsule PO SCH ×2 (14:55→22:32)
[2017-11-09 15:58] LABS: Chloride 109 meq/L (98-107); Potassium 3.7 meq/L (3.5-5.1); Sodium 139 meq/L (136-145)
[2017-11-09 16:29] LABS: Anion Gap 11 meq/L (5-15); Blood Urea Nitrogen 5 mg/dL (7-18); Calcium 7.9 mg/dL (8.5-10.1); Carbon Dioxide 18.6 meq/L (21.0-32.0); Glomerular Filtration Rate Greater Than 89 mL/min (>89); Glucose,Random 126 mg/dL (74-106)
[2017-11-09] MEDS: Multivitamin Inj 10 ML, Thiamine Inj 100 MG, Folic Acid Inj 1 MG in Sodium Chlor 0.9% I... IV.SIG SCH (17:02)
[2017-11-10] MEDS: Piperacil/Tazo 3.375 GM Premix 50 ML IV.SIG SCH ×4 (01:23→20:21)
[2017-11-10] MEDS: chlordiazePOXIDE 25 MG Capsule PO SCH ×3 (05:22→21:46)
[2017-11-10 07:09] LABS: Baso % (Auto) 0.3 % (0.0-2.0); Eos # (Auto) 0.2 th/mm3 (0.0-0.4); Eos % (Auto) 1.9 % (0.0-4.0); Hematocrit 31.9 % (35.0-46.0); Hemoglobin 10.8 gm/dL (11.6-15.3); Lymph # (Auto) 1.3 th/mm3 (1.0-4.8); Lymph % (Auto) 16.6 % (9.0-44.0); Mean Corpuscular HGB Conc 33.7 % (32.0-36.0); Mean Corpuscular Hemoglobin 36.7 pg (27.0-34.0); Mean Corpuscular Volume 108.8 fL (80.0-100.0); Mean Platelet Volume 8.4 fL (7.0-11.0); Mono # (Auto) 0.6 th/mm3 (0.0-0.9); Mono % (Auto) 7.9 % (0.0-8.0); Neut # (Auto) 5.9 th/mm3 (1.8-7.7); Neut % (Auto) 73.3 % (16.0-70.0); Platelet Count 132 th/mm3 (150-450); Red Blood Count 2.93 mil/mm3 (4.00-5.30); Red Cell Distribution Width 14.5 % (11.6-17.2)
[2017-11-10 07:36] LABS: Chloride 109 meq/L (98-107); Sodium 140 meq/L (136-145)
[2017-11-10 07:42] LABS: Anion Gap 11 meq/L (5-15); Blood Urea Nitrogen 2 mg/dL (7-18); Calcium 6.5 mg/dL (8.5-10.1); Carbon Dioxide 19.7 meq/L (21.0-32.0); Glomerular Filtration Rate Greater Than 89 mL/min (>89); Glucose,Random 87 mg/dL (74-106); Lipase 971 U/L (73-393)
[2017-11-10 08:17] LABS: Potassium 2.9 meq/L (3.5-5.1)
[2017-11-10 08:35] LABS: Total Protein 5.9 g/dL (6.4-8.2)
[2017-11-10] MEDS ORDERED: Calcium Chloride Inj 1 GM in Dextrose 5% in Water Inj 100 ML IV.SIG ONE ×2 (08:50)
[2017-11-10] MEDS ORDERED: Potassium Chloride 25 MEQ Effervescent Tablet PO ONE (08:50)
[2017-11-10] MEDS: Insulin NovoLOG Aspart Correctional Sugar Inj SQ SCH (08:54)
--- NOTE | 2017-11-10 09:18 | P.PN ---
Subjective Interval history: 52-year-old female who seen and examined today for follow-up on pancreatitis, alcohol withdrawal. Patient is doing much better today. Has not required any IV pain medicine or IV Ativan. CIWA scores have remained 0 over the last 12 hours. Patient indicates that her abdominal pain is much improved and she has been increasing her diet with eating bread last night that her brought in. Patient is very eager to have her diet advanced. Vital signs are stable. Patient remains afebrile. Physical Exam Vital signs: Vital Signs 11/09/17 12:00 11/09/17 14:55 11/09/17 16:00 Temperature 98.6 F 97.7 F Pulse Rate 87 99 H Respiratory Rate 16 18 17 Blood Pressure 123/60 107/53 L Pulse Oximetry 98 96 11/09/17 20:00 11/10/17 00:00 11/10/17 08:00 Temperature 100.6 F H 99.5 F 99.5 F Pulse Rate 104 H 100 H 97 H Respiratory Rate 16 16 16 Blood Pressure 121/58 L 126/61 124/71 Pulse Oximetry 99 99 98 Intake & Output 11/09/17 11/10/17 11/10/17 18:59 06:59 18:59 Intake Total 1540 / 1540 200 / 200 50 / 50 Balance 1540 / 1540 200 / 200 50 / 50 Intake: IV 320 / 320 200 / 200 50 / 50 NS + KCl 20 mEq Inj 1,000 ML @ 100 / 100 125 mls/hr IV.CONT .Q8H [facility] Rx# :[id number] Calcium Chloride Inj 2 GM In 120 / 120 D5W Inj 100 ML @ 120 mls/hr IV. SIG ONCE ONE Rx#:[id number] Zosyn 3.375 GM Premix 50 ML @ 100 / 100 200 / 200 50 / 50 100 mls/hr IV.SIG Q6H [facility] Rx#: [id number] Oral 1220 / 1220 Other: # Voids 3 2 # Bowel Movements 1 Narrative: GENERAL: Well-developed, well-nourished, in no acute distress. alert and orientated HEENT: Head is normocephalic without any lesions or masses noted. Facial features are symmetric. Eyes: Extraocular muscles are intact. Conjunctivae were clear. NECK: Supple without any masses. Trachea midline no deviation. No JVD, CARDIAC: Regular rhythm, regular rate. S1/S2 are heard. No murmurs gallops or rubs. LUNGS: Clear to auscultation bilaterally. No wheeze, rhonchi or rales. No use of accessory muscles on inspiration or expiration. ABDOMEN: Soft, nontender. Nondistended. Bowel sounds heard in all 4 quadrants. No organomegaly or masses. Negative rebound, negative guarding EXTREMITIES: No edema, pulses are equal bilaterally. No cyanosis or clubbing NEUROLOGY: Mood and affect appear appropriate. Cranial nerves II through XII grossly intact. Moving all extremities, speech is clear. Patient without any signs of withdrawal Results - Labs CBC & Chem 7: 11/10/17 06:30 11/10/17 06:30 Laboratory Results - last 24 hr 11/09/17 11/09/17 11/09/17 08:05 08:05 08:05 CBC w Diff WBC RBC Hgb Hct MCV MCH MCHC RDW Plt Count MPV Neut % (Auto) Lymph % (Auto) Ponce % (Auto) Eos % (Auto) Baso % (Auto) Neut # (Auto) Lymph # (Auto) Ponce # (Auto) Eos # (Auto) Baso # (Auto) WBC Differential Manual diff final Seg Neuts % (Manual) 70 Band Neuts % (Manual) 6 Lymphocytes % (Manual) 14 Monocytes % (Manual) 7 Eosinophils % (Manual) 2 Basophils % (Manual) 1 Abs Neuts (Manual) 6.2 Differential Comment Platelet Estimate Low L Platelet Morphology Normal Sodium 144 Potassium 3.1 L Chloride 113 H Carbon Dioxide 19.1 L Anion Gap 12 BUN 6 L Creatinine 0.55 Estimated GFR Greater than 89 POC Glucose Random Glucose 89 Calcium 5.9 L* Prot Corrected Calcium 6.6 L* Total Protein 5.6 L Lipase 1293 H Vitamin D 25-Hydroxy 20.6 L TSH 2.620 PTH Intact 11/09/17 11/09/17 11/09/17 08:05 11:25 15:31 CBC w Diff WBC RBC Hgb Hct MCV MCH MCHC RDW Plt Count MPV Neut % (Auto) Lymph % (Auto) Ponce % (Auto) Eos % (Auto) Baso % (Auto) Neut # (Auto) Lymph # (Auto) Ponce # (Auto) Eos # (Auto) Baso # (Auto) WBC Differential Seg Neuts % (Manual) Band Neuts % (Manual) Lymphocytes % (Manual) Monocytes % (Manual) Eosinophils % (Manual) Basophils % (Manual) Abs Neuts (Manual) Differential Comment Platelet Estimate Platelet Morphology Sodium 139 Potassium 3.7 Chloride 109 H Carbon Dioxide 18.6 L Anion Gap 11 BUN 5 L Creatinine 0.63 Estimated GFR Greater than 89 POC Glucose 84 Random Glucose 126 H Calcium 7.9 L D Prot Corrected Calcium Total Protein Lipase Vitamin D 25-Hydroxy TSH PTH Intact 25.3 11/09/17 11/09/17 11/10/17 17:07 19:43 06:30 CBC w Diff WBC RBC Hgb Hct MCV MCH MCHC RDW Plt Count MPV Neut % (Auto) Lymph % (Auto) Ponce % (Auto) Eos % (Auto) Baso % (Auto) Neut # (Auto) Lymph # (Auto) Ponce # (Auto) Eos # (Auto) Baso # (Auto) WBC Differential Seg Neuts % (Manual) Band Neuts % (Manual) Lymphocytes % (Manual) Monocytes % (Manual) Eosinophils % (Manual) Basophils % (Manual) Abs Neuts (Manual) Differential Comment Platelet Estimate Platelet Morphology Sodium 140 Potassium 2.9 L* D Chloride 109 H Carbon Dioxide 19.7 L Anion Gap 11 BUN 2 L Creatinine 0.43 L Estimated GFR Greater than 89 POC Glucose 129 H 119 H Random Glucose 87 Calcium 6.5 L* D Prot Corrected Calcium 7.1 L* Total Protein 5.9 L Lipase 971 H Vitamin D 25-Hydroxy TSH PTH Intact 11/10/17 11/10/17 06:30 08:43 CBC w Diff Auto diff final WBC 8.0 RBC 2.93 L Hgb 10.8 L Hct 31.9 L MCV 108.8 H MCH 36.7 H MCHC 33.7 RDW 14.5 Plt Count 132 L MPV 8.4 Neut % (Auto) 73.3 H Lymph % (Auto) 16.6 Ponce % (Auto) 7.9 Eos % (Auto) 1.9 Baso % (Auto) 0.3 Neut # (Auto) 5.9 Lymph # (Auto) 1.3 Ponce # (Auto) 0.6 Eos # (Auto) 0.2 Baso # (Auto) 0.0 WBC Differential . Seg Neuts % (Manual) Band Neuts % (Manual) Lymphocytes % (Manual) Monocytes % (Manual) Eosinophils % (Manual) Basophils % (Manual) Abs Neuts (Manual) Differential Comment . Platelet Estimate Platelet Morphology Sodium Potassium Chloride Carbon Dioxide Anion Gap BUN Creatinine Estimated GFR POC Glucose 108 Random Glucose Calcium Prot Corrected Calcium Total Protein Lipase Vitamin D 25-Hydroxy TSH PTH Intact Microbiology 11/07/17 14:55 Blood - Peripheral Aerobic Blood Culture - Preliminary No growth in 2 days 11/07/17 14:55 Blood - Peripheral Anaerobic Blood Culture - Preliminary No growth in 2 days 11/07/17 14:45 Blood - Peripheral Aerobic Blood Culture - Preliminary No growth in 2 days 11/07/17 14:45 Blood - Peripheral Anaerobic Blood Culture - Preliminary No growth in 2 days Assessment and Plan - Assessment (1) Sepsis Code(s): A41.9 - Sepsis, unspecified organism Status: Acute (2) Obstruction of cystic duct Code(s): K82.0 - Obstruction of gallbladder Status: Acute (3) Abdominal pain Code(s): R10.9 - Unspecified abdominal pain Status: Acute (4) Acute pancreatitis Code(s): K85.90 - Acute pancreatitis without necrosis or infection, unspecified Status: Acute (5) Hypokalemia Code(s): E87.6 - Hypokalemia Status: Acute (6) Acute hyponatremia Code(s): E87.1 - Hypo-osmolality and hyponatremia Status: Acute (7) Urinary tract infection Code(s): N39.0 - Urinary tract infection, site not specified Status: Acute (8) Metabolic acidosis, increased anion gap Code(s): E87.2 - Acidosis Status: Acute - Plan 52-year-old female who originally presented to the hospital because of abdominal pain which is multifactorial with pancreatitis, cystic duct obstruction with systemic inflammatory response syndrome Acute pancreatitis, improving -Could be secondary to alcohol use and/or obstruction -Continue supportive treatment with IV fluids, pain control, -Follow lipase level, continues to improve -GI consulted for further recommendations -Advance diet as tolerated Sepsis, resolved -Patient with leukocytosis, tachycardia, urinary tract infection -Chest x-ray did not indicate any acute abnormality -Unable to perform lactic acid level due to lipemia -Blood cultures are negative for 2 day -Continue Zosyn Cystic duct obstruction, common bile duct dilatation -Patient does have history cholecystectomy -CT scan does indicate gallstones -Gallbladder ultrasound indicate stones president and presumed dilated cystic duct remnant status post previous cholecystectomy, extrahepatic ductal dilatation without clear explanation -GI consulted for further recommendations -MRCP indicates gallbladder containing single stone in spite of history of cholecystectomy. Pancreatitis without focal mass. Prominence to the common duct at the confluence of the cystic duct no stones were identified. Chronic alcohol use -Patient counseled on cessation -CIWA protocol -Librium 25 mg 3 times daily -Continue thiamine and folic acid daily Hypertriglyceridemia -Obtain full lipid panel -We will likely need to start some, cholesterol/triglyceride lowering agent Metabolic acidosis with anion gap, improving -Could be alcohol induced acidosis, sepsis -Continue IV fluids -Continue monitor BMP Electrolyte abnormalities to include hyponatremia, hypokalemia -Continue monitor and replete as needed -Awaiting PTH, vitamin D levels -Calcium gluconate 500 mg p.o. twice daily Hyperglycemia -Hemoglobin A1c 6.3 -Accu-Cheks with sliding scale insulin -Diabetic diet DVT prevention -Sequential compression devices (3) Abdominal pain Qualifiers: Abdominal location: generalized Qualified Code(s): R10.84 - Generalized abdominal pain (4) Acute pancreatitis Qualifiers: Pancreatitis type: alcohol induced Acute pancreatitis complication: no infection or necrosis Qualified Code(s): K85.20 - Alcohol induced acute pancreatitis without necrosis or infection
[2017-11-10] MEDS: Folic Acid 1 MG Tablet PO SCH (10:25)
[2017-11-10] MEDS: Enoxaparin Inj 40 MG/0.4 ML Syringe SQ SCH (10:26)
[2017-11-10] MEDS: Potassium Chlor 20 mEq Premix 20 MEQ/100 ML PIGGYBACK IV.SIG SCH ×2 (14:16→14:17)
[2017-11-10] MEDS ORDERED: Potassium Chloride 20 MEQ Pwd Pkt PO ONE (14:30)
[2017-11-10 16:21] LABS: Chloride 107 meq/L (98-107); Potassium 3.1 meq/L (3.5-5.1); Sodium 138 meq/L (136-145)
[2017-11-10 16:38] LABS: Anion Gap 12 meq/L (5-15); Blood Urea Nitrogen 3 mg/dL (7-18); Calcium 7.7 mg/dL (8.5-10.1); Carbon Dioxide 19.4 meq/L (21.0-32.0); Glomerular Filtration Rate Greater Than 89 mL/min (>89); Glucose,Random 123 mg/dL (74-106)
[2017-11-10 20:03] LABS: Cholesterol 228 mg/dL (120-200); Triglycerides 529 mg/dL (42-150)
[2017-11-10 20:05] LABS: HDL Cholesterol 11.4 mg/dL (40.0-60.0)
[2017-11-10 21:53] LABS: LDL Cholesterol,Calculated 131 mg/dL (0-99)
[2017-11-11] MEDS: Piperacil/Tazo 3.375 GM Premix 50 ML IV.SIG SCH ×4 (02:29→20:24)
[2017-11-11] MEDS: chlordiazePOXIDE 25 MG Capsule PO SCH ×3 (05:42→22:11)
[2017-11-11 07:10] LABS: Chloride 109 meq/L (98-107); Potassium 3.1 meq/L (3.5-5.1); Sodium 141 meq/L (136-145)
[2017-11-11 07:28] LABS: Anion Gap 11 meq/L (5-15); Blood Urea Nitrogen 2 mg/dL (7-18); Calcium 7.3 mg/dL (8.5-10.1); Carbon Dioxide 20.7 meq/L (21.0-32.0); Glomerular Filtration Rate Greater Than 89 mL/min (>89); Glucose,Random 97 mg/dL (74-106)
[2017-11-11] MEDS ORDERED: Potassium Chloride 25 MEQ Effervescent Tablet PO ONE (08:00)
[2017-11-11] MEDS: Folic Acid 1 MG Tablet PO SCH (09:32)
[2017-11-11] MEDS: Potassium Chloride 20 MEQ Pwd Pkt PO SCH ×2 (09:36→20:23)
[2017-11-11] MEDS: Enoxaparin Inj 40 MG/0.4 ML Syringe SQ SCH (09:36)
--- NOTE | 2017-11-11 09:51 | P.PN ---
Subjective Interval history: 52-year-old female who is seen and examined today for follow-up on pancreatitis , alcohol withdrawal. Patient did not do well overnight. Having increased abdominal pain, had fever and chills. Upon seeing the patient's morning she appears to be more painful in her abdomen as compared to yesterday. Vital signs are stable. Patient had fever 100.3 last night. Physical Exam Vital signs: Vital Signs 11/10/17 12:00 11/10/17 16:00 11/10/17 20:00 Temperature 96.8 F L 98.9 F 98.4 F Pulse Rate 86 91 H 98 H Respiratory Rate 16 16 20 Blood Pressure 119/60 115/55 L 110/66 Pulse Oximetry 98 98 99 11/11/17 00:00 11/11/17 04:00 Temperature 100.3 F H 98.3 F Pulse Rate 98 H Respiratory Rate 20 Blood Pressure 120/69 Pulse Oximetry 96 Intake & Output 11/10/17 11/11/17 11/11/17 18:59 06:59 18:59 Intake Total 2170 / 2170 1580 / 1580 1000 / 1000 Balance 2170 / 2170 1580 / 1580 1000 / 1000 Intake: IV 1210 / 1210 1100 / 1100 1000 / 1000 NS + KCl 20 mEq Inj 1,000 ML @ 1000 / 1000 1000 / 1000 1000 / 1000 125 mls/hr IV.CONT .Q8H [facility] Rx# :[id number] Calcium Chloride Inj 1 GM In 110 / 110 D5W Inj 100 ML @ 110 mls/hr IV. SIG ONCE ONE Rx#:[id number] Zosyn 3.375 GM Premix 50 ML @ 100 / 100 100 / 100 100 mls/hr IV.SIG Q6H [facility] Rx#: [id number] Oral 960 / 960 480 / 480 Other: # Voids 5 4 # Bowel Movements 0 3 Narrative: GENERAL: Well-developed, well-nourished, in no acute distress. alert and orientated HEENT: Head is normocephalic without any lesions or masses noted. Facial features are symmetric. Eyes: Extraocular muscles are intact. Conjunctivae were clear. NECK: Supple without any masses. Trachea midline no deviation. No JVD, CARDIAC: Regular rhythm, regular rate. S1/S2 are heard. No murmurs gallops or rubs. LUNGS: Clear to auscultation bilaterally. No wheeze, rhonchi or rales. No use of accessory muscles on inspiration or expiration. ABDOMEN: Soft, diffuse tenderness noted. Nondistended. Bowel sounds heard in all 4 quadrants. No organomegaly or masses. Negative rebound, negative guarding EXTREMITIES: No edema, pulses are equal bilaterally. No cyanosis or clubbing NEUROLOGY: Mood and affect appear appropriate. Cranial nerves II through XII grossly intact. Moving all extremities, speech is clear. Patient without any signs of withdrawal Results - Labs CBC & Chem 7: 11/10/17 06:30 11/11/17 06:40 Laboratory Results - last 24 hr 11/10/17 11/11/17 11/11/17 15:43 06:40 06:40 Sodium 138 141 Potassium 3.1 L 3.1 L Chloride 107 109 H Carbon Dioxide 19.4 L 20.7 L Anion Gap 12 11 BUN 3 L 2 L Creatinine 0.43 L 0.41 L Estimated GFR Greater than 89 Greater than 89 Random Glucose 123 H 97 Calcium 7.7 L D 7.3 L* Prot Corrected Calcium 7.9 L D Total Protein 6.0 L Triglycerides 529 H Cholesterol 228 H LDL Cholesterol, Calc 131 H HDL Cholesterol 11.4 L Cholesterol/HDL Ratio 20.00 Lipase 751 H Microbiology 11/07/17 14:55 Blood - Peripheral Aerobic Blood Culture - Preliminary No growth in 3 days 11/07/17 14:55 Blood - Peripheral Anaerobic Blood Culture - Preliminary No growth in 3 days 11/07/17 14:45 Blood - Peripheral Aerobic Blood Culture - Preliminary No growth in 3 days 11/07/17 14:45 Blood - Peripheral Anaerobic Blood Culture - Preliminary No growth in 3 days Assessment and Plan - Assessment (1) Sepsis Code(s): A41.9 - Sepsis, unspecified organism Status: Acute (2) Obstruction of cystic duct Code(s): K82.0 - Obstruction of gallbladder Status: Acute (3) Abdominal pain Code(s): R10.9 - Unspecified abdominal pain Status: Acute (4) Acute pancreatitis Code(s): K85.90 - Acute pancreatitis without necrosis or infection, unspecified Status: Acute (5) Hypokalemia Code(s): E87.6 - Hypokalemia Status: Acute (6) Acute hyponatremia Code(s): E87.1 - Hypo-osmolality and hyponatremia Status: Acute (7) Urinary tract infection Code(s): N39.0 - Urinary tract infection, site not specified Status: Acute (8) Metabolic acidosis, increased anion gap Code(s): E87.2 - Acidosis Status: Acute - Plan 52-year-old female who originally presented to the hospital because of abdominal pain which is multifactorial with pancreatitis, cystic duct obstruction with systemic inflammatory response syndrome Acute pancreatitis, improving -Could be secondary to alcohol use and/or obstruction -Continue supportive treatment with IV fluids, pain control, -Follow lipase level, continues to improve -GI consulted for further recommendations -Change back to clear liquid diet Sepsis, resolved -Patient with leukocytosis, tachycardia, urinary tract infection -Chest x-ray did not indicate any acute abnormality -Unable to perform lactic acid level due to lipemia -Blood cultures are negative for 3 day -Continue Zosyn Fever -Unknown etiology, -Obtain urinalysis, chest x-ray, blood cultures Cystic duct obstruction, common bile duct dilatation -Patient does have history cholecystectomy -CT scan does indicate gallstones -Gallbladder ultrasound indicate stones president and presumed dilated cystic duct remnant status post previous cholecystectomy, extrahepatic ductal dilatation without clear explanation -GI consulted for further recommendations -MRCP indicates gallbladder containing single stone in spite of history of cholecystectomy. Pancreatitis without focal mass. Prominence to the common duct at the confluence of the cystic duct no stones were identified. Chronic alcohol use -Patient counseled on cessation -CIWA protocol -Librium 25 mg 3 times daily -Continue thiamine and folic acid daily Hyperlipidemia -Patient with significant elevated triglyceride of 529, LDL 131 -Start Lipitor 40 mg daily Metabolic acidosis with anion gap, improving -Could be alcohol induced acidosis, sepsis -Continue IV fluids -Continue monitor BMP Electrolyte abnormalities to include hyponatremia, hypokalemia -Continue monitor and replete as needed -Awaiting PTH, vitamin D levels -Calcium gluconate 500 mg p.o. twice daily Hyperglycemia -Hemoglobin A1c 6.3 -Accu-Cheks with sliding scale insulin -Diabetic diet DVT prevention -Sequential compression devices (3) Abdominal pain Qualifiers: Abdominal location: generalized Qualified Code(s): R10.84 - Generalized abdominal pain (4) Acute pancreatitis Qualifiers: Pancreatitis type: alcohol induced Acute pancreatitis complication: no infection or necrosis Qualified Code(s): K85.20 - Alcohol induced acute pancreatitis without necrosis or infection
--- NOTE | 2017-11-11 12:21 | XR ---
EXAM DATE: 11/11/2017 12:17 PM EDT AGE/SEX: 52 years / Female INDICATIONS: Fever. CLINICAL DATA: This is the patient's subsequent encounter. Patient reports that signs and symptoms h ave been present for 1 day and indicates a pain score of 0/10. MEDICAL/SURGICAL HISTORY: Pancreatitis. Cholecystectomy. COMPARISON: [facility], CHEST 1V SINGLE AP, 11/07/2017. . FINDINGS: A single AP view of the chest demonstrates the lungs to be symmetrically aerated without evidence of mass, infiltrate or effusion. The cardiomediastinal contours are unremarkable. Osseous structures a re intact. CONCLUSION: Negative for acute process Electronically signed by: Jamir Bourne MD 11/11/2017 12:20 PM EDT
[2017-11-11 14:36] LABS: Bilirubin,Urine Negative (Negative); Clarity,Urine Slightly Cloudy (Clear); Color,Urine Yellow (Yellw/Straw); Glucose,Urine (UA) Negative (Negative); Leukocyte Esterase,Urine Negative (Negative); Nitrite,Urine Negative (Negative); Urobilinogen,Urine 0.2 mg/dL (Less than 2)
[2017-11-11 14:46] LABS: Bacteria,Urine Rare /hpf; RBC,Urine 0-3 /hpf (0-3); Squamous Epithelial Cell,Urine 0-5 /hpf (0-5); WBC,Urine 0-5 /hpf (0-5)
[2017-11-11 16:30] LABS: Chloride 109 meq/L (98-107); Potassium 3.8 meq/L (3.5-5.1); Sodium 139 meq/L (136-145)
[2017-11-11 16:32] LABS: Calcium 7.5 mg/dL (8.5-10.1)
[2017-11-11 16:33] LABS: Anion Gap 8 meq/L (5-15); Blood Urea Nitrogen 2 mg/dL (7-18); Carbon Dioxide 21.7 meq/L (21.0-32.0); Glucose,Random 102 mg/dL (74-106)
[2017-11-11 16:36] LABS: Glomerular Filtration Rate Greater Than 89 mL/min (>89)
[2017-11-12] MEDS: Piperacil/Tazo 3.375 GM Premix 50 ML IV.SIG SCH ×2 (02:09→09:19)
[2017-11-12] MEDS: chlordiazePOXIDE 25 MG Capsule PO SCH ×3 (05:09→21:25)
[2017-11-12 06:45] LABS: Chloride 113 meq/L (98-107); Potassium 3.3 meq/L (3.5-5.1); Sodium 143 meq/L (136-145)
[2017-11-12 06:58] LABS: Anion Gap 10 meq/L (5-15); Blood Urea Nitrogen 1 mg/dL (7-18); Calcium 6.9 mg/dL (8.5-10.1); Glomerular Filtration Rate Greater Than 89 mL/min (>89); Glucose,Random 99 mg/dL (74-106); Lipase 559 U/L (73-393)
[2017-11-12 07:11] LABS: Total Protein 5.7 g/dL (6.4-8.2)
[2017-11-12] MEDS ORDERED: Calcium Chloride Inj 1 GM in Dextrose 5% in Water Inj 100 ML IV.SIG ONE ×2 (08:00)
[2017-11-12] MEDS: Folic Acid 1 MG Tablet PO SCH (08:11)
[2017-11-12] MEDS: Potassium Chloride 20 MEQ Pwd Pkt PO SCH ×2 (09:19→21:26)
[2017-11-12] MEDS: Enoxaparin Inj 40 MG/0.4 ML Syringe SQ SCH (09:32)
[2017-11-12] MEDS ORDERED: Magnesium Sulfate Inj 2 GM in Sodium Chlor 0.9% Inj 96 ML IV.SIG ONE (10:19)
--- NOTE | 2017-11-12 10:51 | P.PN ---
Subjective Interval history: 52-year-old female who is seen and examined today for follow-up on pancreatitis , alcohol withdrawal. Patient does appear to much better today. She is tolerating liquid diet. Due to continuous potassium replacement diet patient is started developing loose stools. Vital signs are stable. T-max 99.7 Physical Exam Vital signs: Vital Signs 11/11/17 10:59 11/11/17 12:00 11/11/17 16:00 Temperature 98.0 F 100.1 F H Pulse Rate 104 H 96 H Respiratory Rate 18 22 21 Blood Pressure 101/53 L 104/54 L Pulse Oximetry 97 100 11/11/17 18:19 11/11/17 20:00 11/12/17 00:00 Temperature 99.1 F 99.7 F H Pulse Rate 99 H 99 H Respiratory Rate 18 20 20 Blood Pressure 108/55 L 106/58 L Pulse Oximetry 100 96 11/12/17 04:00 11/12/17 08:00 Temperature 96.3 F L 97.6 F Pulse Rate 96 H 92 H Respiratory Rate 20 21 Blood Pressure 103/59 L 112/67 Pulse Oximetry 99 97 Intake & Output 11/11/17 11/12/17 11/12/17 18:59 06:59 18:59 Intake Total 3760 / 3760 460 / 460 600 / 600 Output Total 400 / 400 300 / 300 Balance 3360 / 3360 460 / 460 300 / 300 Weight 65.2 kg Intake: IV 3100 / 3100 100 / 100 NS + KCl 20 mEq Inj 1,000 ML @ 3000 / 3000 125 mls/hr IV.CONT .Q8H [facility] Rx# :[id number] Zosyn 3.375 GM Premix 50 ML @ 100 / 100 100 / 100 100 mls/hr IV.SIG Q6H [facility] Rx#: [id number] Oral 660 / 660 360 / 360 600 / 600 Output: Urine 400 / 400 300 / 300 Other: # Voids 5 Date of Last Bowel Movement 11/11/17 # Bowel Movements 4 Narrative: GENERAL: Well-developed, well-nourished, in no acute distress. alert and orientated HEENT: Head is normocephalic without any lesions or masses noted. Facial features are symmetric. Eyes: Extraocular muscles are intact. Conjunctivae were clear. NECK: Supple without any masses. Trachea midline no deviation. No JVD, CARDIAC: Regular rhythm, regular rate. S1/S2 are heard. No murmurs gallops or rubs. LUNGS: Clear to auscultation bilaterally. No wheeze, rhonchi or rales. No use of accessory muscles on inspiration or expiration. ABDOMEN: Soft, nontender. Nondistended. Bowel sounds heard in all 4 quadrants. No organomegaly or masses. Negative rebound, negative guarding EXTREMITIES: No edema, pulses are equal bilaterally. No cyanosis or clubbing NEUROLOGY: Mood and affect appear appropriate. Cranial nerves II through XII grossly intact. Moving all extremities, speech is clear. Patient without any signs of withdrawal Results - Labs CBC & Chem 7: 11/10/17 06:30 11/12/17 06:08 Laboratory Results - last 24 hr 11/11/17 11/11/17 11/12/17 14:10 16:17 06:08 Sodium 139 143 Potassium 3.8 3.3 L Chloride 109 H 113 H Carbon Dioxide 21.7 20.0 L Anion Gap 8 10 BUN 2 L 1 L Creatinine 0.52 0.38 L Estimated GFR Greater than 89 Greater than 89 Random Glucose 102 99 Calcium 7.5 L 6.9 L* Prot Corrected Calcium 7.6 L Magnesium Total Protein 5.7 L Lipase 559 H Urine Color Yellow Urine Clarity Slightly cloudy Urine pH 6.0 Ur Specific [place] 1.020 Urine Protein Negative Urine Glucose (UA) Negative Urine Ketones 15 H Urine Occult Blood Negative Urine Nitrate Negative Urine Bilirubin Negative Urine Urobilinogen 0.2 Ur Leukocyte Esterase Negative Urine RBC 0-3 Urine WBC 0-5 Ur Squamous Epith Cells 0-5 Urine Bacteria Rare H Micro UA Comment Culture not ind Ur Microscopic Review Microscopic reviewed Urine Culture Comments Culture not ind 11/12/17 06:08 Sodium Potassium Chloride Carbon Dioxide Anion Gap BUN Creatinine Estimated GFR Random Glucose Calcium Prot Corrected Calcium Magnesium 0.7 L Total Protein Lipase Urine Color Urine Clarity Urine pH Ur Specific [place] Urine Protein Urine Glucose (UA) Urine Ketones Urine Occult Blood Urine Nitrate Urine Bilirubin Urine Urobilinogen Ur Leukocyte Esterase Urine RBC Urine WBC Ur Squamous Epith Cells Urine Bacteria Micro UA Comment Ur Microscopic Review Urine Culture Comments Microbiology 11/07/17 14:55 Blood - Peripheral Aerobic Blood Culture - Preliminary No growth in 4 days 11/07/17 14:55 Blood - Peripheral Anaerobic Blood Culture - Preliminary No growth in 4 days 11/07/17 14:45 Blood - Peripheral Aerobic Blood Culture - Preliminary No growth in 4 days 11/07/17 14:45 Blood - Peripheral Anaerobic Blood Culture - Preliminary No growth in 4 days - Imaging Impressions Chest X-Ray 11/11/17 00:00 CONCLUSION: Negative for acute process Assessment and Plan - Assessment (1) Sepsis Code(s): A41.9 - Sepsis, unspecified organism Status: Acute (2) Obstruction of cystic duct Code(s): K82.0 - Obstruction of gallbladder Status: Acute (3) Abdominal pain Code(s): R10.9 - Unspecified abdominal pain Status: Acute (4) Acute pancreatitis Code(s): K85.90 - Acute pancreatitis without necrosis or infection, unspecified Status: Acute (5) Hypokalemia Code(s): E87.6 - Hypokalemia Status: Acute (6) Acute hyponatremia Code(s): E87.1 - Hypo-osmolality and hyponatremia Status: Acute (7) Urinary tract infection Code(s): N39.0 - Urinary tract infection, site not specified Status: Acute (8) Metabolic acidosis, increased anion gap Code(s): E87.2 - Acidosis Status: Acute - Plan 52-year-old female who originally presented to the hospital because of abdominal pain which is multifactorial with pancreatitis, cystic duct obstruction with systemic inflammatory response syndrome Acute pancreatitis, improving -Could be secondary to alcohol use and/or obstruction -Continue supportive treatment with IV fluids, pain control, -Follow lipase level, continues to improve -GI consulted for further recommendations -Advance diet as tolerated Sepsis, resolved -Patient with leukocytosis, tachycardia, urinary tract infection -Chest x-ray did not indicate any acute abnormality -Unable to perform lactic acid level due to lipemia -Blood cultures are negative for 4 day -Continue Zosyn Fever, resolved -Unknown etiology, -Urinalysis, chest x-ray does not indicate any acute abnormality -Continue follow blood cultures Cystic duct obstruction, common bile duct dilatation -Patient does have history cholecystectomy -CT scan does indicate gallstones -Gallbladder ultrasound indicate stones president and presumed dilated cystic duct remnant status post previous cholecystectomy, extrahepatic ductal dilatation without clear explanation -GI consulted for further recommendations -MRCP indicates gallbladder containing single stone in spite of history of cholecystectomy. Pancreatitis without focal mass. Prominence to the common duct at the confluence of the cystic duct no stones were identified. Chronic alcohol use -Patient counseled on cessation -CIWA protocol -Librium 25 mg 3 times daily -Continue thiamine and folic acid daily Hyperlipidemia -Patient with significant elevated triglyceride of 529, LDL 131 -Continue Lipitor 40 mg daily Metabolic acidosis with anion gap, improving -Could be alcohol induced acidosis, sepsis -Continue IV fluids -Continue monitor BMP Electrolyte abnormalities to include hyponatremia, hypokalemia -Continue monitor and replete as needed -Intact PTH 25, PTH related peptide pending -Vitamin D 25 was 20, Vit D1, 25 pending -Calcium gluconate 500 mg p.o. twice daily Hyperglycemia -Hemoglobin A1c 6.3 -Accu-Cheks and sliding scale insulin were discontinued -Diabetic diet DVT prevention -Sequential compression devices (3) Abdominal pain Qualifiers: Abdominal location: generalized Qualified Code(s): R10.84 - Generalized abdominal pain (4) Acute pancreatitis Qualifiers: Pancreatitis type: alcohol induced Acute pancreatitis complication: no infection or necrosis Qualified Code(s): K85.20 - Alcohol induced acute pancreatitis without necrosis or infection
[2017-11-12] MEDS: Mag Sulf 1 gm/100 ml Premix 100 ML IV.SIG SCH ×4 (11:21→15:25)
[2017-11-12] MEDS: Magnesium Oxide 400 MG Tablet PO SCH ×2 (11:21→21:25)
[2017-11-12 15:57] LABS: Chloride 110 meq/L (98-107); Potassium 3.8 meq/L (3.5-5.1); Sodium 141 meq/L (136-145)
[2017-11-12 16:01] LABS: Calcium 8.1 mg/dL (8.5-10.1)
[2017-11-12 16:56] LABS: Anion Gap 11 meq/L (5-15); Blood Urea Nitrogen 1 mg/dL (7-18); Carbon Dioxide 20.3 meq/L (21.0-32.0); Glomerular Filtration Rate Greater Than 89 mL/min (>89); Glucose,Random 148 mg/dL (74-106)
[2017-11-13 05:45] VITALS: RESP 18
[2017-11-13] MEDS: chlordiazePOXIDE 25 MG Capsule PO SCH (05:57)
[2017-11-13 06:56] LABS: Chloride 111 meq/L (98-107); Potassium 3.7 meq/L (3.5-5.1); Sodium 142 meq/L (136-145)
[2017-11-13 07:05] LABS: Anion Gap 10 meq/L (5-15); Calcium 7.6 mg/dL (8.5-10.1); Carbon Dioxide 21.3 meq/L (21.0-32.0); Glucose,Random 113 mg/dL (74-106); Lipase 477 U/L (73-393)
[2017-11-13 07:10] LABS: Glomerular Filtration Rate Greater Than 89 mL/min (>89); Magnesium 1.4 mg/dL (1.5-2.5)
[2017-11-13] MEDS ORDERED: Mag Sulf 1 gm/100 ml Premix 100 ML IV.SIG ONE (07:29)
[2017-11-13] MEDS: Magnesium Oxide 400 MG Tablet PO SCH (09:20)
[2017-11-13] MEDS: Folic Acid 1 MG Tablet PO SCH (09:21)
[2017-11-13] MEDS: Enoxaparin Inj 40 MG/0.4 ML Syringe SQ SCH (09:21)
[2017-11-13] MEDS: Potassium Chloride 20 MEQ Pwd Pkt PO SCH (09:21)
[2017-11-13 09:35] VITALS: BP 97/55; PULSE 103; TEMP 98; O2SAT 99
--- NOTE | 2017-11-13 15:29 | P.DS ---
Date of admission: 11/07/17 09:01 Primary care physician: No Primary Care Physician Attending physician on discharge: Romaine Becker Anticipated date of discharge: 11/13/17 Brief History from admission: 52-year-old female with known history of chronic alcohol abuse, chronic abdominal pain, Gastrosoft reflux who presented to the hospital because acute onset of abdominal pain. Patient states that over the last 6 months she has been experiencing a rather constant abdominal discomfort located in the right upper quadrant under her ribs with associated heartburn. She indicates that in July she did undergo EGD and colonoscopy by a physician located in the [facility]. She does not know the name of the physician. Patient states that she has been tolerating her pain, she did have a CT ordered for further evaluation in September, however due to insurance reasons she was unable to do it. Patient indicates that over the last 6 months her pain has been a 5/10 on a pain scale. When she woke up this morning it was 10/ 10 on a pain scale. Patient indicates this morning that the pain was located in the epigastric region as well as her chronic right upper quadrant pain. She has some nausea and dry heaves. Denied any hematemesis, patient states that she has chronic diarrhea is been no change in her bowel movements. Denies any melena or hematochezia. Patient had workup done emergency department found to have multiple medical problems related to her abdominal pain, alcohol use. Patient states that she drinks anywhere from 3-10 mixed drinks daily. The longest that she is ever gone without alcohol was 3 days. DS: Diagnosis - Discharge Diagnosis (1) Sepsis Status: Acute (2) Obstruction of cystic duct Status: Acute (3) Abdominal pain Status: Acute (4) Acute pancreatitis Status: Acute (5) Hypokalemia Status: Acute (6) Acute hyponatremia Status: Acute (7) Urinary tract infection Status: Acute (8) Metabolic acidosis, increased anion gap Status: Acute DS: Medications - Discharge Medications Prescriptions: calcium carbonate 500 mg CHEW BID #60 tab chlordiazepoxide HCl 5 mg PO DIRECTED #36 cap folic acid 1 mg PO DAILY #30 tab magnesium oxide 400 mg PO BID #60 tab oxycodone-acetaminophen [Percocet] 1 tab PO Q6HR PRN #12 tab PRN Reason: Acute Pain thiamine HCl (vitamin B1) 100 mg PO DAILY #30 tab DS: Summary Hospital Course: 52-year-old female who originally presented the hospital because of acute abdominal pain in the epigastric region with nausea and dry heaves. Patient was admitted to the hospital with acute pancreatitis. Patient does have a rather complex history of chronic alcoholism, where she drinks 3-10 mixed drinks daily. Patient was admitted the hospital with IV fluids, n.p.o., pain control, CIWA protocol. Patient had workup done which also indicated significantly elevated triglyceride level. Patient is supposed to be on lipid- lowering medication however she does not take it. GI was consulted due to abnormal CT scan for her gallbladder. Keep indicate patient has gallstones in the gallbladder, however patient had cholecystectomy done up at [facility] by Dr. Rinku panchal. Patient underwent ERCP without any abnormality or obstructive process. Patient continued conservative treatment. Patient response was slow due to complexity of her alcoholism, hypertriglyceridemia, pancreatitis. Her diet was advanced however she developed worsening symptoms in which had to start patient back on a liquid diet. Patient did continue to tolerate diet in her diet was advanced to regular meals and she had no further abdominal pain or abnormality. Patient did have significant electrolyte abnormalities which was complex due to the patient's chronic alcoholism, pancreatitis. Patient had replacement of potassium, magnesium, calcium on a daily basis. Patient finally stabilized without any need for extra replacement. Patient clinically stable at this time. Plan discharge accordingly. - Time Spent with Patient Total time spent providing and/or coordinating discharge services: Greater than 30 minutes - Quality: VTE Deep Vein Thrombosis/Pulmonary Embolism Present on Admission: No Exam Vital signs: Vital Signs 11/12/17 16:00 11/12/17 17:42 11/12/17 20:00 Temperature 98.7 F 99.6 F Pulse Rate 86 96 H Respiratory Rate 20 18 20 Blood Pressure 100/83 102/53 L Pulse Oximetry 97 97 11/13/17 00:00 11/13/17 05:30 11/13/17 08:00 Temperature 99.2 F 99.1 F 98.0 F Pulse Rate 93 H 90 103 H Respiratory Rate 20 18 18 Blood Pressure 108/60 106/64 97/55 L Pulse Oximetry 98 98 99 Intake & Output 11/12/17 11/13/17 11/13/17 18:59 06:59 18:59 Intake Total 2720 / 2720 2615 / 2615 725 / 725 Output Total 600 / 600 Balance 2120 / 2120 2615 / 2615 725 / 725 Weight 65.4 kg Intake: IV 1560 / 1560 2375 / 2375 725 / 725 NS + KCl 20 mEq Inj 1,000 ML @ 1000 / 1000 2375 / 2375 625 / 625 125 mls/hr IV.CONT .Q8H [facility] Rx# :[id number] Calcium Chloride Inj 1 GM In 110 / 110 D5W Inj 100 ML @ 110 mls/hr IV. SIG ONCE ONE Rx#:[id number] Magnesium Sulfate 1 gm/D5W 100 400 / 400 100 / 100 ml Premix 100 ML @ 100 mls/hr IV.SIG ONCE ONE Rx#:[id number] Zosyn 3.375 GM Premix 50 ML @ 50 / 50 100 mls/hr IV.SIG Q6H [facility] Rx#: [id number] Oral 1160 / 1160 240 / 240 Output: Urine 600 / 600 Other: # Voids 1 3 Date of Last Bowel Movement 11/12/17 11/12/17 11/12/17 Narrative: GENERAL: Well-developed, well-nourished, in no acute distress. alert and orientated HEENT: Head is normocephalic without any lesions or masses noted. Facial features are symmetric. Eyes: Extraocular muscles are intact. Conjunctivae were clear. NECK: Supple without any masses. Trachea midline no deviation. No JVD, CARDIAC: Regular rhythm, regular rate. S1/S2 are heard. No murmurs gallops or rubs. LUNGS: Clear to auscultation bilaterally. No wheeze, rhonchi or rales. No use of accessory muscles on inspiration or expiration. ABDOMEN: Soft, nontender. Nondistended. Bowel sounds heard in all 4 quadrants. No organomegaly or masses. Negative rebound, negative guarding EXTREMITIES: No edema, pulses are equal bilaterally. No cyanosis or clubbing NEUROLOGY: Mood and affect appear appropriate. Cranial nerves II through XII grossly intact. Moving all extremities, speech is clear Results Procedures completed during hospitalization: none Labs on day of discharge: Labs from last 24 hours 11/13/17 11/12/17 05:00 15:37 Sodium 142 141 Potassium 3.7 3.8 Chloride 111 H 110 H Carbon Dioxide 21.3 20.3 L Anion Gap 10 11 BUN Less than 1 L 1 L Creatinine 0.41 L 0.53 Estimated GFR Greater than 89 Greater than 89 Random Glucose 113 H 148 H Calcium 7.6 L 8.1 L D Magnesium 1.4 L D Lipase 477 H Preliminary micro results at discharge 11/11/17 10:35 Aerobic Blood Culture - Preliminary Blood - Peripheral No growth in 2 days Anaerobic Blood Culture - Preliminary No growth in 2 days - Impressions ITS Impressions Abdomen/Pelvis CT 11/07/17 07:46 CONCLUSION: 1. Mild indurative changes adjacent to the pancreatic head and proximal body and around the duodenum. 2. Hepatic steatosis. 3. Gallstones. 4. Mild extrahepatic biliary ductal dilatation. Gallbladder Ultrasound 11/07/17 08:59 CONCLUSION: 1. Stones present in presumed dilated cystic duct remnant post stated previous cholecystectomy 2. Extrahepatic biliary ductal dilatation without clear explanation Cholangiopancreatography MRI 11/08/17 08:37 CONCLUSION: 1. Gallbladder containing a single gallstone in spite of the history of cholecystectomy 2. Pancreatitis head of the pancreas without focal mass 3. Mild prominence to the common duct at the confluence with the cystic duct. There are no stones identified. 4. Findings have been discussed with Dr. Chavez on today's date. Chest X-Ray 11/11/17 00:00 CONCLUSION: Negative for acute process Discharge Plan - Discharge Disposition Patient Disposition: 01 Discharge Home - Discharge Condition Condition: Stable - Discharge Order Discharge Orders: Discharge Order (Routine); Ordered 11/13/17 Ordered By: Jaguar Luna - Discharge Details Anticipated Discharge Date: 11/13/17 - Physicians Team Primary Care Provider: Primary Care Renate Brownlee Attending Provider: Romaine Becker Other Providers: Hiwot Chavez MD
[2017-11-15 00:40] LABS: Vitamin D 1,25-Dihydroxy 63 pg/mL (18-78)
== END 2017-11-13 12:32 | disposition home or self-care (01) ==
LOC: PHED 07:18 → PHEDA 09:01 → PH3 10:05
PROVIDERS: ADMIT Hospitalist; ATTEND Hospitalist

== ENCOUNTER 2017-12-20 19:46 | Inpatient (IN) ==
[2017-12-20] MEDS ORDERED: Sod Chloride 0.9% Inj 2,000 ML IV.SIG ONE (20:21)
--- NOTE | 2017-12-20 20:32 | ED ---
HPI General Chief Complaint: Abdominal Pain Stated Complaint: Abd pain x 3 days hx pancreatitis Time Seen by Provider: 12/20/17 20:18 Source: patient Mode of arrival: ambulatory Limitations: no limitations History of Present Illness HPI narrative: Patient is a 52-year-old female who has a history of recent pancreatitis was admitted to our hospital for 6 days n.p.o. IV fluid apparently she had her gallbladder out 6 years ago the pancreatitis was discovered recently with a gallstone in the common bile duct but it was unclear the etiology as she has had no gallbladder for over 7 years. Patient is now in the ER with severe periumbilical pain similar to the pain she had when she was here for pancreatitis. She feels nauseous localized pain. She has not followed up with a [facility]. She is a regular daily drinker but she denies any excessive binge drinking could have stimulated her pancreatitis. She did not take any medications for this to calm the pain she comes to the ER without having seen another doctor for this pain pain is localized does not radiate consistently progressively getting worse started earlier today MD complaint: Reports abdominal pain Onset (ago): hour(s) Pain Consistency: constant Location: Reports periumbilical Severity: similar to previous episodes Quality: Reports sharp and burning Relieving factors: nothing Exacerbating factors: other (alcohol) Related Data Home Medications Medication Instructions Recorded Confirmed gemfibrozil 600 mg PO BID 11/07/17 12/20/17 pantoprazole 40 mg PO DAILY 11/07/17 12/20/17 Previous Rx's Medication Instructions Recorded calcium carbonate 500 mg CHEW BID #60 tab 11/13/17 folic acid 1 mg PO DAILY #30 tab 11/13/17 magnesium oxide 400 mg PO BID #60 tab 11/13/17 thiamine HCl (vitamin B1) 100 mg PO DAILY #30 tab 11/13/17 Allergies Allergy/AdvReac Type Severity Reaction Status Date / Time codeine Allergy Severe Rash Verified 12/20/17 20:03 Review of Systems ROS: all other systems reviewed are negative [facility] Social History Social History Substance History: No History of Abuse Second Hand Smoke Exposure: Yes Smoking Status: Current every day smoker Tobacco Type: Cigarettes How Often Do You Have a Drink Containing Alcohol: 4 or more times a week Recent Travel in [facility] within the Last 8 Weeks: No Recent Out of Country Travel within the Last 8 Weeks: No Immunization History Tetanus Immunization: Unsure Exam Narrative Exam Narrative: GENERAL: appears wooried of her pain apprehensive and in pain laying very still SKIN: Warm and dry. HEAD: Atraumatic. Normocephalic. EYES: Pupils equal and round. No scleral icterus. No injection or drainage. ENT: No nasal bleeding or discharge. Mucous membranes pink and moist. NECK: Trachea midline. No JVD. CARDIOVASCULAR: Regular rate and rhythm. RESPIRATORY: No accessory muscle use. Clear to auscultation. Breath sounds equal bilaterally. GASTROINTESTINAL: Abdomen + tender from right periumbilical to left lateral and radiation around left back slightly distended . Hepatic and splenic margins not palpable. MUSCULOSKELETAL: Extremities without clubbing, cyanosis, or edema. No obvious deformities. NEUROLOGICAL: Awake and alert. No obvious cranial nerve deficits. Motor grossly within normal limits. Five out of 5 muscle strength in the arms and legs. Normal speech. PSYCHIATRIC: Appropriate mood and affect; insight and judgment normal. Course Initial Documented Vital Signs Temperature 99.0 F 12/20/17 20:03 Pulse Rate 105 H 12/20/17 20:03 Respiratory Rate 20 12/20/17 20:03 Blood Pressure 143/76 H 12/20/17 20:03 Pulse Oximetry 99 12/20/17 20:03 Last Documented Vital Signs Temperature 97.5 F L 12/22/17 16:00 Pulse Rate 84 12/22/17 16:00 Respiratory Rate 20 12/22/17 16:00 Blood Pressure 120/72 12/22/17 16:00 Pulse Oximetry 97 12/22/17 16:00 Medical Decision Making [facility] Narrative Medical decision making narrative: Lipase mildly elevated [address] ordered that shows mild inflammation and fluid around pancreatitc head similiar to prior CT but less pronounced IV fluid NPO and admit for further management GI cionsult bowel rest Medical Screen Exam Complete: Yes Emergency Medical Condition: Yes Differential Diagnosis Differential Diagnosis: pancreatitis vs GB disease vs GERD vs SBO other Lab Data Result diagrams: 12/22/17 07:15 12/22/17 07:15 POC Results POC Urine Results Negative Lab Results 12/20/17 12/20/17 12/20/17 Range/Units 20:58 20:58 20:58 CBC w Diff Auto diff final WBC 9.1 (4.0-11.0) th/mm3 RBC 3.61 L (4.00-5.30) mil/mm3 Hgb 13.0 (11.6-15.3) gm/dL Hct 38.2 (35.0-46.0) % MCV 105.9 H (80.0-100.0) fL MCH 35.9 H (27.0-34.0) pg MCHC 33.9 (32.0-36.0) % RDW 13.8 (11.6-17.2) % Plt Count 187 (150-450) th/mm3 MPV 7.7 (7.0-11.0) fL Neut % (Auto) 72.2 H (16.0-70.0) % Lymph % (Auto) 17.3 (9.0-44.0) % [place] % (Auto) 7.8 (0.0-8.0) % Eos % (Auto) 0.3 (0.0-4.0) % Baso % (Auto) 2.4 H (0.0-2.0) % Neut # (Auto) 6.6 (1.8-7.7) th/mm3 Lymph # (Auto) 1.6 (1.0-4.8) th/mm3 [place] # (Auto) 0.7 (0.0-0.9) th/mm3 Eos # (Auto) 0.0 (0.0-0.4) th/mm3 Baso # (Auto) 0.2 (0.0-0.2) th/mm3 WBC Differential . Differential Comment . Sodium 133 L (136-145) meq/L Potassium 5.3 H (3.5-5.1) meq/L Chloride 99 (98-107) meq/L Carbon Dioxide 24.9 (21.0-32.0) meq/L Anion Gap 9 (5-15) meq/L BUN 14 (7-18) mg/dL Creatinine 1.00 (0.50-1.00) mg/dL Estimated GFR 58 L (>89) mL/min Random Glucose 119 H (74-106) mg/dL Calcium 8.6 (8.5-10.1) mg/dL Total Bilirubin 0.6 (0.2-1.0) mg/dL AST 63 H (15-37) U/L ALT 26 (10-53) U/L Alkaline Phosphatase 86 (45-117) U/L Total Protein 8.4 H (6.4-8.2) g/dL Albumin 3.9 (3.4-5.0) g/dL Lipase 458 H (73-393) U/L Urine Color Yellow (Yellw/Straw) Urine Clarity Slightly cloudy (Clear) Urine pH 5.0 (5.0-8.5) Ur Specific [place] Greater/equal 1.030 (1.002-1.035) Urine Protein 100 H (Neg-Trace) mg/dL Urine Glucose (UA) Negative (Negative) mg/dL Urine Ketones Trace H (Negative) mg/dL Urine Occult Blood Moderate H (Negative) Urine Nitrate Negative (Negative) Urine Bilirubin Negative (Negative) Urine Urobilinogen 0.2 (Less than 2) mg/dL Ur Leukocyte Esterase Negative (Negative) Urine RBC 0-3 (0-3) /hpf Urine WBC 0-5 (0-5) /hpf Ur Squamous Epith Cells 0-5 (0-5) /hpf Amorphous Sediment Occasional H (None) /hpf Hyaline Casts 11-30 H (0-3) /lpf Granular Casts 1-3 H (None) /lpf Ur Microscopic Review Microscopic reviewed Stl C.difficile DNA Amp (Negative) St C. diff Tox Epid 027 (Negative) Serum Alcohol Less than 3 (0-5) mg/dL 12/21/17 12/21/17 12/22/17 Range/Units 09:20 15:15 07:15 CBC w Diff Auto diff final WBC 4.8 (4.0-11.0) th/mm3 RBC 3.35 L (4.00-5.30) mil/mm3 Hgb 12.1 (11.6-15.3) gm/dL Hct 35.4 (35.0-46.0) % MCV 105.7 H (80.0-100.0) fL MCH 36.3 H (27.0-34.0) pg MCHC 34.3 (32.0-36.0) % RDW 14.1 (11.6-17.2) % Plt Count 145 L (150-450) th/mm3 MPV 7.9 (7.0-11.0) fL Neut % (Auto) 55.7 (16.0-70.0) % Lymph % (Auto) 34.6 (9.0-44.0) % [place] % (Auto) 5.5 (0.0-8.0) % Eos % (Auto) 3.6 (0.0-4.0) % Baso % (Auto) 0.6 (0.0-2.0) % Neut # (Auto) 2.7 (1.8-7.7) th/mm3 Lymph # (Auto) 1.6 (1.0-4.8) th/mm3 [place] # (Auto) 0.3 (0.0-0.9) th/mm3 Eos # (Auto) 0.2 (0.0-0.4) th/mm3 Baso # (Auto) 0.0 (0.0-0.2) th/mm3 WBC Differential . Differential Comment . Sodium 139 (136-145) meq/L Potassium 2.9 L* D (3.5-5.1) meq/L Chloride 103 (98-107) meq/L Carbon Dioxide 26.1 (21.0-32.0) meq/L Anion Gap 10 (5-15) meq/L BUN 7 (7-18) mg/dL Creatinine 0.61 (0.50-1.00) mg/dL Estimated GFR Greater than 89 (>89) mL/min Random Glucose 117 H (74-106) mg/dL Calcium 7.5 L D (8.5-10.1) mg/dL Total Bilirubin (0.2-1.0) mg/dL AST (15-37) U/L ALT (10-53) U/L Alkaline Phosphatase (45-117) U/L Total Protein (6.4-8.2) g/dL Albumin (3.4-5.0) g/dL Lipase 546 H (73-393) U/L Urine Color (Yellw/Straw) Urine Clarity (Clear) Urine pH (5.0-8.5) Ur Specific [place] (1.002-1.035) Urine Protein (Neg-Trace) mg/dL Urine Glucose (UA) (Negative) mg/dL Urine Ketones (Negative) mg/dL Urine Occult Blood (Negative) Urine Nitrate (Negative) Urine Bilirubin (Negative) Urine Urobilinogen (Less than 2) mg/dL Ur Leukocyte Esterase (Negative) Urine RBC (0-3) /hpf Urine WBC (0-5) /hpf Ur Squamous Epith Cells (0-5) /hpf Amorphous Sediment (None) /hpf Hyaline Casts (0-3) /lpf Granular Casts (None) /lpf Ur Microscopic Review Stl C.difficile DNA Amp Negative (Negative) St C. diff Tox Epid 027 Negative (Negative) Serum Alcohol (0-5) mg/dL 12/22/17 Range/Units 07:15 CBC w Diff WBC (4.0-11.0) th/mm3 RBC (4.00-5.30) mil/mm3 Hgb (11.6-15.3) gm/dL Hct (35.0-46.0) % MCV (80.0-100.0) fL MCH (27.0-34.0) pg MCHC (32.0-36.0) % RDW (11.6-17.2) % Plt Count (150-450) th/mm3 MPV (7.0-11.0) fL Neut % (Auto) (16.0-70.0) % Lymph % (Auto) (9.0-44.0) % [place] % (Auto) (0.0-8.0) % Eos % (Auto) (0.0-4.0) % Baso % (Auto) (0.0-2.0) % Neut # (Auto) (1.8-7.7) th/mm3 Lymph # (Auto) (1.0-4.8) th/mm3 [place] # (Auto) (0.0-0.9) th/mm3 Eos # (Auto) (0.0-0.4) th/mm3 Baso # (Auto) (0.0-0.2) th/mm3 WBC Differential Differential Comment Sodium 143 (136-145) meq/L Potassium 3.7 D (3.5-5.1) meq/L Chloride 106 (98-107) meq/L Carbon Dioxide 27.5 (21.0-32.0) meq/L Anion Gap 10 (5-15) meq/L BUN 4 L (7-18) mg/dL Creatinine 0.57 (0.50-1.00) mg/dL Estimated GFR Greater than 89 (>89) mL/min Random Glucose 97 (74-106) mg/dL Calcium 7.6 L (8.5-10.1) mg/dL Total Bilirubin 0.9 (0.2-1.0) mg/dL AST 93 H (15-37) U/L ALT 28 (10-53) U/L Alkaline Phosphatase 73 (45-117) U/L Total Protein 7.3 D (6.4-8.2) g/dL Albumin 3.3 L D (3.4-5.0) g/dL Lipase 486 H (73-393) U/L Urine Color (Yellw/Straw) Urine Clarity (Clear) Urine pH (5.0-8.5) Ur Specific [place] (1.002-1.035) Urine Protein (Neg-Trace) mg/dL Urine Glucose (UA) (Negative) mg/dL Urine Ketones (Negative) mg/dL Urine Occult Blood (Negative) Urine Nitrate (Negative) Urine Bilirubin (Negative) Urine Urobilinogen (Less than 2) mg/dL Ur Leukocyte Esterase (Negative) Urine RBC (0-3) /hpf Urine WBC (0-5) /hpf Ur Squamous Epith Cells (0-5) /hpf Amorphous Sediment (None) /hpf Hyaline Casts (0-3) /lpf Granular Casts (None) /lpf Ur Microscopic Review Stl C.difficile DNA Amp (Negative) St C. diff Tox Epid 027 (Negative) Serum Alcohol (0-5) mg/dL Imaging Data Radiologist's impression: Abdomen/Pelvis CT 12/20/17 22:43 CONCLUSION: 1. Diffuse colitis. Minimal inflammatory changes. No perforation or abscess. 2. Cholelithiasis. 3. Mild prominence of the common bile duct measuring 6 mm. 4. Minimal fluid/inflammatory changes of the pancreas versus duodenum. This could be from pancreatitis in the right clinical setting. Correlation with amylase/lipase. Discharge Plan Discharge Disposition Patient Disposition: 30 Still Patient Discharge Details Diagnosis: Pancreatitis, Colitis Physicians Team ED Provider: Ravindra Oliva Primary Care Provider: UNKNOWN, Attending Provider: Yolanda Thornton Other Providers: Hiwot Chavez Status ED Status: Left Department Discharge Information Discharge Date/Time: 12/21/17 02:21
[2017-12-20] MEDS ORDERED: Famotidine PF Inj 20 MG/2 ML Vial IV.PUSH ONE (20:35)
[2017-12-20] MEDS ORDERED: Pantoprazole Inj 40 MG Vial IV.PUSH ONE (20:35)
[2017-12-20] MEDS ORDERED: Morphine Inj 4 MG/ML Vial IV.PUSH ONE (21:16)
[2017-12-20 21:17] LABS: Bilirubin,Urine Negative (Negative); Clarity,Urine Slightly Cloudy (Clear); Color,Urine Yellow (Yellw/Straw); Glucose,Urine (UA) Negative (Negative); Leukocyte Esterase,Urine Negative (Negative); Nitrite,Urine Negative (Negative); Specific Gravity,Urine Greater/Equal 1.030 (1.002-1.035); Urobilinogen,Urine 0.2 mg/dL (Less than 2)
[2017-12-20 21:19] LABS: Baso # (Auto) 0.2 th/mm3 (0.0-0.2); Baso % (Auto) 2.4 % (0.0-2.0); Eos % (Auto) 0.3 % (0.0-4.0); Hematocrit 38.2 % (35.0-46.0); Lymph # (Auto) 1.6 th/mm3 (1.0-4.8); Lymph % (Auto) 17.3 % (9.0-44.0); Mean Corpuscular HGB Conc 33.9 % (32.0-36.0); Mean Corpuscular Hemoglobin 35.9 pg (27.0-34.0); Mean Corpuscular Volume 105.9 fL (80.0-100.0); Mean Platelet Volume 7.7 fL (7.0-11.0); Mono # (Auto) 0.7 th/mm3 (0.0-0.9); Mono % (Auto) 7.8 % (0.0-8.0); Neut # (Auto) 6.6 th/mm3 (1.8-7.7); Neut % (Auto) 72.2 % (16.0-70.0); Platelet Count 187 th/mm3 (150-450); Red Blood Count 3.61 mil/mm3 (4.00-5.30); Red Cell Distribution Width 13.8 % (11.6-17.2); White Blood Count 9.1 th/mm3 (4.0-11.0)
[2017-12-20 21:28] LABS: Chloride 99 meq/L (98-107); Sodium 133 meq/L (136-145)
[2017-12-20 21:32] LABS: Albumin 3.9 g/dL (3.4-5.0); Anion Gap 9 meq/L (5-15); Blood Urea Nitrogen 14 mg/dL (7-18); Calcium 8.6 mg/dL (8.5-10.1); Carbon Dioxide 24.9 meq/L (21.0-32.0); Glucose,Random 119 mg/dL (74-106); Lipase 458 U/L (73-393)
[2017-12-20 21:35] LABS: Alanine Aminotransferase 26 U/L (10-53); Aspartate Aminotransferase 63 U/L (15-37); Glomerular Filtration Rate 58 mL/min (>89)
[2017-12-20 21:36] LABS: Total Protein 8.4 g/dL (6.4-8.2)
[2017-12-20 21:38] LABS: Alkaline Phosphatase 86 U/L (45-117)
[2017-12-20 21:39] LABS: Amorphous Sediment,Urine Occasional /hpf
[2017-12-20 21:40] LABS: RBC,Urine 0-3 /hpf (0-3); Squamous Epithelial Cell,Urine 0-5 /hpf (0-5); WBC,Urine 0-5 /hpf (0-5)
[2017-12-20 21:47] LABS: Potassium 5.3 meq/L (3.5-5.1)
--- NOTE | 2017-12-20 23:52 | CT ---
EXAM DATE: 12/20/2017 11:11 PM EDT AGE/SEX: 52 years / Female INDICATIONS: Abdominal pain for three days. CLINICAL DATA: This is the patient's initial encounter. Patient reports that signs and symptoms have been present for 3 days and indicates a pain score of 3/10. MEDICAL/SURGICAL HISTORY: Gastroesophageal reflux disease. Pancreatitis. Alcohol abuse. Nunu cystectomy. Colonoscopy. Esophagogastroduodenoscopy. ORAL CONTRAST: No oral contrast ingested. RADIATION DOSE: 6.55 CTDI (mGy) COMPARISON: [facility], CT ABDOMEN & PELVIS W CONTRAST, 11/07/2017. . TECHNIQUE: Multiple contiguous axial images were obtained through the abdomen and pelvis following b olus infusion of 90 ml Omnipaque 350 (iohexol) nonionic water-soluble contrast as a single exam dos e. No oral contrast ingested. Using automated exposure control and adjustment of the mA and/or kV ac cording to patient size, radiation dose was kept as low as reasonably achievable to obtain optimal di agnostic quality images. DICOM format image data is available electronically for review and comparis on. FINDINGS: Lower Lungs: The visualized lower lungs are clear. Liver: The liver is decreased in attenuation without space-occupying lesion. Calcified gallstones. Th ere is no dilation of the biliary tree. Mild prominence of common bile duct measuring 6 mm. Spleen: Homogeneous density without enlargement. Pancreas: Minimal fluid/inflammatory cyst adjacent to the pancreatic head and duodenum.. Kidneys: Normal in size and shape. No evidence of mass or hydronephrosis. Adrenal Glands: Unremarkable. Aorta: The aorta and proximal iliac vessels are grossly unremarkable without aneurysmal dilation. Bowel/Mesentery: Wall thickening of the colon more notably involving the descending, sigmoid colon a nd rectum. Minimal inflammatory changes. No perforation or abscess. Abdominal Wall: Intact. Retroperitoneum: No evidence of adenopathy in the retrocrural, para-aortic, or deep pelvic regions. Bladder: Contours are smooth. Reproductive Organs: No abnormal masses or calcifications seen. Inguinal: The inguinal region is unremarkable without evidence of adenopathy. Bony Structures: Unremarkable. CONCLUSION: 1. Diffuse colitis. Minimal inflammatory changes. No perforation or abscess. 2. Cholelithiasis. 3. Mild prominence of the common bile duct measuring 6 mm. 4. Minimal fluid/inflammatory changes of the pancreas versus duodenum. This could be from pancreatit is in the right clinical setting. Correlation with amylase/lipase. Electronically signed by: Teddy John MD 12/20/2017 11:50 PM EDT
[2017-12-21] MEDS ORDERED: Haloperidol Inj 5 MG/ML Ampul IV.PUSH PRN (01:21)
[2017-12-21] MEDS ORDERED: LORazepam 1 MG Tablet PO PRN (01:21)
[2017-12-21] MEDS ORDERED: Dextrose 5%/NaCl 0.45% Inj 1,000 ML IV.CONT SCH (01:30)
[2017-12-21] MEDS ORDERED: Acetaminophen 325 MG Tablet PO PRN (01:45)
[2017-12-21] MEDS ORDERED: Bisacodyl 10 MG Supp RECTAL PRN (01:45)
[2017-12-21] MEDS: Sod Chloride 0.9% Inj 1,000 ML IV.CONT SCH ×2 (02:27→13:18)
[2017-12-21] MEDS: Piperacil/Tazo 4.5 GM Premix 4.5 GM/100 ML BAG IV.SIG SCH ×4 (02:27→21:13)
[2017-12-21 02:38] VITALS: RESP 20
--- NOTE | 2017-12-21 08:43 | P.HPIM ---
History of Present Illness Primary Care Physician: UNKNOWN Chief Complaint: abdominal pain History of Present Illness: patient is a 52 y/o female with history of alcohol abuse, pancreatitis who presented to ER with abdominal pain. she was admitted to the hospital about a month ago for acute pancreatitis. she says that she was doing fairly fine till two weeks ago when she started to have nausea, abdominal pain and diarrhea. she says that the pain is mild to moderate and is periumbilical. she's having non- bloody diarrhea. she denies any fever but had some night sweats and chills. Inpatient Certification: I certify that the inpatient services were ordered in accordance with Medicare regulations governing the order. This includes certification that hospital inpatient services are reasonable and necessary and in the case of services not specified as inpatient-only under 42 CFR 419.22(n), that they are appropriately provided as inpatient services in accordance to with the 2-midnight benchmark under 43 CFR 412.3(e) Estimated Total Length of Stay (Days): 2 Plans for Post Hospital Care: Not yet determined Review of Systems All other systems reviewed negative except as stated in HPI PMFSH - History History Provided By: Patient - Medical History Medical History: Medical History (Last Reviewed 12/21/17 @ 08:39 by Yolanda Thornton MD) ETOH abuse GERD (gastroesophageal reflux disease) Hyperlipidemia - Surgical History Surgical History: Surgical History (Last Reviewed 12/21/17 @ 08:39 by Yolanda Thornton MD) History of cholecystectomy History of colonoscopy History of esophagogastroduodenoscopy - Family History Family History: Family History (Last Reviewed 12/21/17 @ 08:39 by Yolanda Thornton MD) Father History of alcoholism History of heart disease Mother History of alcoholism History of lung cancer History of breast cancer - Tobacco History Second Hand Smoke Exposure: Yes Tobacco Use In Past 30 Days: Yes Smoking Status: Current every day smoker Tobacco Type: Cigarettes - Alcohol History How Often Do You Have a Drink Containing Alcohol: 4 or more times a week - Substance Use History Substance History: No History of Abuse - Travel History Recent Travel in the [place] Within the Last 8 Weeks: No Recent Travel Out of the Country Within the Last 8 Weeks: No - Immunization History Tetanus Immunization: <5 Years Hx Influenza Vaccine This Season: No Medications and Allergies Active Medications: Active Medications Acetaminophen (Tylenol) 650 mg PO Q4H PRN PRN Reason: Temp > 100.4 Al Hydroxide/Mg Hydroxide (Milk Of Magnesia Liq) 30 ml PO Q12H PRN PRN Reason: Mild Constipation Bisacodyl (Dulcolax Supp) 10 mg RECTAL DAILY PRN PRN Reason: SEVERE CONSITIPATION Flumazenil (Romazecon Inj) 0.2 mg IV.PUSH Q1M PRN PRN Reason: OVERSEDATION Folic Acid (Folic Acid) 1 mg PO DAILY [facility] Stop: 12/26/17 08:59 Haloperidol Lactate (Haldol Inj) 1 mg IV.PUSH Q15M PRN PRN Reason: for severe agitation Sodium Chloride (Ns Inj) 1,000 mls @ 100 mls/hr IV.CONT .Q10H [facility] Last Infusion: 12/21/17 06:39 Dose: 100 mls/hr Piperacillin/Tazobactam/Dextrose (Zosyn 4.5 Gm Premix) 4.5 gm in 100 mls @ 200 mls/hr IV.SIG Q6H [facility] Last Infusion: 12/21/17 03:00 Dose: Infused Lactulose (Lactulose Liq) 30 ml PO DAILY PRN PRN Reason: SEVERE CONSITIPATION Lorazepam (Ativan) 1 mg PO Q4H PRN PRN Reason: for CIWA 8-10 Lorazepam (Ativan) 2 mg PO Q2H PRN PRN Reason: for CIWA 11-14 Lorazepam (Ativan Inj) 2 mg IV.PUSH Q1H PRN PRN Reason: for CIWA 15-20 Lorazepam (Ativan Inj) 2 mg IV.PUSH Q15M PRN PRN Reason: for CIWA > 20 Lorazepam (Ativan Inj) 1 mg IV.PUSH Q4H PRN PRN Reason: for CIWA 8-10 Multivitamins/Minerals (Theragran-M) 1 tab PO DAILY [facility] Stop: 12/26/17 08:59 Ondansetron HCl (Zofran Inj) 4 mg IV.PUSH Q6H PRN PRN Reason: NAUSEA OR VOMITING Pantoprazole Sodium (Protonix Inj) 40 mg IV.PUSH Q12H [facility] Senna/Docusate Sodium (Kya-Colace) 1 tab PO BID [facility] Sennosides (Senokot) 17.2 mg PO Q12H PRN PRN Reason: Moderate Constipation Thiamine HCl (Vitamin B1) 100 mg PO DAILY [facility] Allergies Allergy/AdvReac Type Severity Reaction Status Date / Time codeine Allergy Severe Rash Verified 12/20/17 20:03 Home Medications Medication Instructions Recorded Confirmed Type gemfibrozil 600 mg PO BID 11/07/17 12/20/17 History pantoprazole 40 mg PO DAILY 11/07/17 12/20/17 History Exam Vital signs: Vital Signs 12/20/17 20:03 12/20/17 20:54 12/20/17 21:31 Temperature 99.0 F Pulse Rate 105 H 96 H 100 H Respiratory Rate 20 18 18 Blood Pressure 143/76 H 149/86 H 140/73 Pulse Oximetry 99 98 98 12/20/17 22:33 12/21/17 00:33 12/21/17 01:40 Temperature Pulse Rate 101 H 100 H 86 Respiratory Rate 18 18 18 Blood Pressure 140/71 128/77 123/84 Pulse Oximetry 100 96 100 12/21/17 02:37 Temperature 98.6 F Pulse Rate 98 H Respiratory Rate 20 Blood Pressure 121/81 Pulse Oximetry 96 Intake & Output 12/20/17 12/21/17 12/21/17 18:59 06:59 18:59 Intake Total 2453 / 2453 Balance 2453 / 2453 Weight 61 kg Intake: IV 2453 / 2453 NS Inj 1,000 ML @ 100 mls/hr IV 353 / 353 .CONT .Q10H [facility] Rx#:[id number] Zosyn 4.5 GM Premix 4.5 gm In 100 / 100 100 ml @ 200 mls/hr IV.SIG Q6H [facility] Rx#:[id number] NS Inj 2,000 ML @ Wide Open IV. 1999 SIG BOLUS ONE Rx#:[id number] Oral 0 / 0 Other: # Voids 1 Date of Last Bowel Movement 12/20/17 # Bowel Movements 0 Weight On Admission 61 kg - Constitutional no acute distress - Routine HEENT Exam Eye: Present: PERRL - Routine Neck Exam Present: supple - Routine Respiratory Exam Present: CTA bilaterally - Routine Cardiovascular Exam Present: RRR - Routine Abdominal Exam Present: soft, tenderness (mild periumbilical tenderness.) - Routine Extremities Exam Comments: no pedal edema. - Routine Neurological Exam Present: alert, oriented X3 Results - Labs CBC & Chem 7: 12/20/17 20:58 12/20/17 20:58 Labs: Short CBC 12/20/17 Range/Units 20:58 WBC 9.1 (4.0-11.0) th/mm3 Hgb 13.0 (11.6-15.3) gm/dL Hct 38.2 (35.0-46.0) % Plt Count 187 (150-450) th/mm3 BMP 12/20/17 20:58 Sodium 133 L Potassium 5.3 H Chloride 99 Carbon Dioxide 24.9 BUN 14 Creatinine 1.00 Calcium 8.6 Liver Function 12/20/17 Range/Units 20:58 Total Bilirubin 0.6 (0.2-1.0) mg/dL AST 63 H (15-37) U/L ALT 26 (10-53) U/L Alkaline Phosphatase 86 (45-117) U/L Albumin 3.9 (3.4-5.0) g/dL Urine 12/20/17 Range/Units 20:58 Urine Color Yellow (Yellw/Straw) Urine Clarity Slightly cloudy (Clear) Urine pH 5.0 (5.0-8.5) Ur Specific [place] Greater/equal 1.030 (1.002-1.035) Urine Protein 100 H (Neg-Trace) mg/dL Urine Glucose (UA) Negative (Negative) mg/dL - Imaging Impressions Abdomen/Pelvis CT 12/20/17 22:43 CONCLUSION: 1. Diffuse colitis. Minimal inflammatory changes. No perforation or abscess. 2. Cholelithiasis. 3. Mild prominence of the common bile duct measuring 6 mm. 4. Minimal fluid/inflammatory changes of the pancreas versus duodenum. This could be from pancreatitis in the right clinical setting. Correlation with amylase/lipase. Caprini VTE Risk Assessment Caprini VTE Risk Assessment: No/Low Risk (score <= 1) Caprini Risk Assessment Model: Point Value = 1 Point Value = 2 Point Value = 3 Point Value = 5 Age 41-60 Minor surgery BMI > 25 kg/m2 Swollen legs Varicose veins or History of unexplained or recurrent spontaneous Oral contraceptives or hormone replacement Sepsis (< 1 month) Serious lung disease, including pneumonia (< 1 month) Abnormal pulmonary function Acute myocardial infarction Congestive heart failure (< 1 month) History of inflammatory bowel disease Medical patient at bed rest Age 61-74 Arthroscopic surgery Major open surgery (> 45 min) Laparoscopic surgery (> 45 min) Malignancy Confined to bed (> 72 hours) Immobilizing plaster cast Central venous access Age >= 75 History of VTE Family history of VTE Factor V Leiden Prothrombin [id number] Lupus anticoagulant Anticardiolipin antibodies Elevated serum homocysteine Heparin-induced thrombocytopenia Other congenital or acquired thrombophilia Stroke (< 1 month) Elective arthroplasty Hip, pelvis, or leg fracture Acute spinal cord injury (< 1 month) Prophylaxis Regimen: Total Risk Factor Score Risk Level Prophylaxis Regimen 0-1 Low Early ambulation 2 Moderate Order ONE of the following: *Sequential Compression Device (SCD) *Heparin 5000 units SQ BID 3-4 Higher Order ONE of the following medications: *Heparin 5000 units SQ TID *Enoxaparin/Lovenox 40 mg SQ daily (WT < 150 kg, CrCl > 30 mL/min) *Enoxaparin/Lovenox 30 mg SQ daily (WT < 150 kg, CrCl > 10-29 mL/min) *Enoxaparin/Lovenox 30 mg SQ BID (WT < 150 kg, CrCl > 30 mL/min) AND/OR *Sequential Compression Device (SCD) 5 or more Highest Order ONE of the following medications: *Heparin 5000 units SQ TID (Preferred with Epidurals) *Enoxaparin/Lovenox 40 mg SQ daily (WT < 150 kg, CrCl > 30 mL/min) *Enoxaparin/Lovenox 30 mg SQ daily (WT < 150 kg, CrCl > 10-29 mL/min) *Enoxaparin/Lovenox 30 mg SQ BID (WT < 150 kg, CrCl > 30 mL/min) AND *Sequential Compression Device (SCD) Assessment and Plan - Plan A/P - diffuse colitis/ pancreatitis keep NPO- continue with supportive care including IV fluid, pain control and antiemetics as needed- consult GI. check the stool fo c-diff/ culture. -alcohol abuse; stared on CIWA protocol- continue with vitamin supplements. Discussed Condition With: the patient and RN. Discharge Planning: home when w/u completed and clinically improved. H&P: Quality - VTE Deep Vein Thrombosis/Pulmonary Embolism Present on Admission: No
[2017-12-21] MEDS: Multivitamin/Minerals Therapeutic Tablet PO SCH (09:20)
[2017-12-21] MEDS: Pantoprazole Inj 40 MG Vial IV.PUSH SCH ×2 (09:20→21:13)
[2017-12-21] MEDS: Folic Acid 1 MG Tablet PO SCH (09:20)
[2017-12-21] MEDS: Senna/Docusate Sodium 8.6/50 MG Tablet PO SCH ×2 (09:20→21:13)
[2017-12-21 10:34] LABS: Anion Gap 10 meq/L (5-15); Blood Urea Nitrogen 7 mg/dL (7-18); Calcium 7.5 mg/dL (8.5-10.1); Carbon Dioxide 26.1 meq/L (21.0-32.0); Chloride 103 meq/L (98-107); Glomerular Filtration Rate Greater Than 89 mL/min (>89); Glucose,Random 117 mg/dL (74-106); Lipase 546 U/L (73-393); Sodium 139 meq/L (136-145)
[2017-12-21 10:37] LABS: Potassium 2.9 meq/L (3.5-5.1)
[2017-12-21] MEDS ORDERED: Potassium Bicarbonate 25 MEQ Effervescent Tablet PO SCH (14:00)
[2017-12-21] MEDS: Potassium Chloride 25 MEQ Effervescent Tablet PO SCH ×2 (14:09→17:24)
[2017-12-22] MEDS: Sod Chloride 0.9% Inj 1,000 ML IV.CONT SCH ×3 (00:12→18:01)
[2017-12-22] MEDS: Potassium Chloride 25 MEQ Effervescent Tablet PO SCH ×6 (00:13→18:01)
[2017-12-22] MEDS: Piperacil/Tazo 4.5 GM Premix 4.5 GM/100 ML BAG IV.SIG SCH ×3 (02:24→15:02)
--- NOTE | 2017-12-22 03:24 | MB ---
cc: Hiwot Chavez MD DATE: 12/21/2017 REASON FOR REFERRAL: Abdominal pain. Thank you for the consultation. HISTORY OF PRESENT ILLNESS: A 52-year-old female who has significant history of abdominal pain in the last 24-48 hours with significant nausea. The patient was here about a month ago for acute pancreatitis secondary to large quantity of alcohol. The patient was in the hospital for about a week. She left the hospital when she was doing okay. She was doing okay for 2 weeks, but then she started drinking again and she started having nausea with abdominal pain. The abdominal pain was about 8-9/10 in the midepigastric area with some radiation worsening with food exacerbated with alcohol. No significant relieving factors except she is not eating and she came in because of that. This was also accompanied with diarrhea, brown stool with 3-4 a day, no blood, and this has been going on for the last 24 hours. She denied gastrointestinal bleed. No hematemesis, No coffee-ground emesis. Currently, lying in bed, seems to be less discomfort, but still abdominal discomfort and she is agitated. REVIEW OF SYSTEMS: All 12-point negative except for HPI. PAST MEDICAL HISTORY: Significant for reflux symptoms, hyperlipidemia, pancreatitis secondary to alcohol abuse. PAST SURGICAL HISTORY: Significant for colonoscopy, upper endoscopy, cholecystectomy. FAMILY HISTORY: 1. Significant for coronary artery disease. 2. Lung cancer. 3. Breast cancer. 4. Alcoholism. SOCIAL HISTORY: Positive for tobacco and alcohol. No drugs. MEDICATIONS: Reviewed in the chart ALLERGIES: ALLERGY TO CODEINE. PHYSICAL EXAMINATION: VITAL SIGNS: Stable. HEENT: Pupils round, reactive to light. NECK: Supple. CHEST: Clear. The patient seems to be anxious. CARDIAC: Regular rate and rhythm. ABDOMEN: Soft, moderate diffuse tenderness in the midepigastric area in the upper abdomen. Positive bowel sounds. No hepatosplenomegaly I could find. NEUROLOGIC: Intact with some agitation and possibly some shakiness of her hands. SKIN: Clear. No jaundice. No scleral icterus. LABORATORY DATA: White count 9.1, hemoglobin 13, platelets 187. Sodium 139, potassium 2.9, creatinine 0.61, calcium 7.5, AST 63, ALT 26, alkaline phosphatase 86, total bilirubin 0.6, C. difficile was negative. IMAGING DATA: CT of the abdomen, finding of diffuse colitis with minimal inflammatory changes. No perforation or abscess. 1. Cholelithiasis. 2. Prominent common bile duct measuring 6 mm, minimal fluid inflammation around the pancreas. This could be pancreatitis. ASSESSMENT AND PLAN: 1. A 52-year-old lady with acute pancreatitis. This is the second episode, most likely related to alcohol. Patient was advised to stop alcohol completely. Will monitor her labs. 2. Alcohol abuse. We will watch for delirium tremens. 3. Diarrhea, resolving could be infectious. C. difficile was negative. We will monitor, the patient had recent colonoscopy. If symptoms persist, she will need a colonoscopy. MD RILEY Gregg/joao/anam , 10:36 PM , 10:49 PM
[2017-12-22 08:06] LABS: Baso % (Auto) 0.6 % (0.0-2.0); Eos # (Auto) 0.2 th/mm3 (0.0-0.4); Eos % (Auto) 3.6 % (0.0-4.0); Hematocrit 35.4 % (35.0-46.0); Hemoglobin 12.1 gm/dL (11.6-15.3); Lymph # (Auto) 1.6 th/mm3 (1.0-4.8); Lymph % (Auto) 34.6 % (9.0-44.0); Mean Corpuscular HGB Conc 34.3 % (32.0-36.0); Mean Corpuscular Hemoglobin 36.3 pg (27.0-34.0); Mean Corpuscular Volume 105.7 fL (80.0-100.0); Mean Platelet Volume 7.9 fL (7.0-11.0); Mono # (Auto) 0.3 th/mm3 (0.0-0.9); Mono % (Auto) 5.5 % (0.0-8.0); Neut # (Auto) 2.7 th/mm3 (1.8-7.7); Neut % (Auto) 55.7 % (16.0-70.0); Platelet Count 145 th/mm3 (150-450); Red Blood Count 3.35 mil/mm3 (4.00-5.30); Red Cell Distribution Width 14.1 % (11.6-17.2); White Blood Count 4.8 th/mm3 (4.0-11.0)
[2017-12-22 08:31] LABS: Alanine Aminotransferase 28 U/L (10-53); Albumin 3.3 g/dL (3.4-5.0); Alkaline Phosphatase 73 U/L (45-117); Anion Gap 10 meq/L (5-15); Aspartate Aminotransferase 93 U/L (15-37); Blood Urea Nitrogen 4 mg/dL (7-18); Calcium 7.6 mg/dL (8.5-10.1); Carbon Dioxide 27.5 meq/L (21.0-32.0); Chloride 106 meq/L (98-107); Glomerular Filtration Rate Greater Than 89 mL/min (>89); Glucose,Random 97 mg/dL (74-106); Lipase 486 U/L (73-393); Potassium 3.7 meq/L (3.5-5.1); Sodium 143 meq/L (136-145); Total Protein 7.3 g/dL (6.4-8.2)
[2017-12-22] MEDS: Folic Acid 1 MG Tablet PO SCH (09:14)
[2017-12-22] MEDS: Senna/Docusate Sodium 8.6/50 MG Tablet PO SCH (09:14)
[2017-12-22] MEDS: Pantoprazole Inj 40 MG Vial IV.PUSH SCH (09:14)
[2017-12-22] MEDS: Multivitamin/Minerals Therapeutic Tablet PO SCH (09:15)
--- NOTE | 2017-12-22 09:42 | P.PNIM ---
Subjective Interval history: f/u; pancreatitis in no acute distress. no abdominal pain, nausea or vomiting. afebrile. still with some diarrhea. d/w the RN. Physical Exam Vital signs: Vital Signs 12/21/17 12:00 12/21/17 16:00 12/21/17 20:00 Temperature 98.7 F 98.7 F 98.4 F Pulse Rate 75 72 69 Respiratory Rate 20 20 20 Blood Pressure 130/76 131/82 136/74 Pulse Oximetry 98 97 98 12/22/17 00:00 Temperature 98.1 F Pulse Rate 70 Respiratory Rate 20 Blood Pressure 135/75 Pulse Oximetry 99 Intake & Output 12/21/17 12/22/17 12/22/17 18:59 06:59 18:59 Intake Total 840 / 840 400 / 400 950 / 950 Balance 840 / 840 400 / 400 950 / 950 Weight 61 kg Intake: IV 840 / 840 400 / 400 950 / 950 NS Inj 1,000 ML @ 100 mls/hr IV 640 / 640 200 / 200 950 / 950 .CONT .Q10H RUTH Rx#:[id number] Zosyn 4.5 GM Premix 4.5 gm In 200 / 200 200 / 200 100 ml @ 200 mls/hr IV.SIG Q6H RUTH Rx#:[id number] Oral 0 / 0 0 / 0 Other: # Voids 5 2 Date of Last Bowel Movement 12/21/17 12/22/17 # Bowel Movements 5 4 - Constitutional no acute distress - Routine Respiratory Exam Present: CTA bilaterally - Routine Cardiovascular Exam Present: RRR - Routine Abdominal Exam Present: soft - Routine Extremities Exam Comments: no pedal edema. - Routine Neurological Exam Present: alert, oriented X3 Results - Labs CBC & Chem 7: 12/22/17 07:15 12/22/17 07:15 Laboratory Results - last 24 hr 12/21/17 12/21/17 12/22/17 09:20 15:15 07:15 CBC w Diff Auto diff final WBC 4.8 RBC 3.35 L Hgb 12.1 Hct 35.4 MCV 105.7 H MCH 36.3 H MCHC 34.3 RDW 14.1 Plt Count 145 L MPV 7.9 Neut % (Auto) 55.7 Lymph % (Auto) 34.6 [place] % (Auto) 5.5 Eos % (Auto) 3.6 Baso % (Auto) 0.6 Neut # (Auto) 2.7 Lymph # (Auto) 1.6 [place] # (Auto) 0.3 Eos # (Auto) 0.2 Baso # (Auto) 0.0 WBC Differential . Differential Comment . Sodium 139 Potassium 2.9 L* D Chloride 103 Carbon Dioxide 26.1 Anion Gap 10 BUN 7 Creatinine 0.61 Estimated GFR Greater than 89 Random Glucose 117 H Calcium 7.5 L D Total Bilirubin AST ALT Alkaline Phosphatase Total Protein Albumin Lipase 546 H Stl C.difficile DNA Amp Negative St C. diff Tox Epid 027 Negative 12/22/17 07:15 CBC w Diff WBC RBC Hgb Hct MCV MCH MCHC RDW Plt Count MPV Neut % (Auto) Lymph % (Auto) [place] % (Auto) Eos % (Auto) Baso % (Auto) Neut # (Auto) Lymph # (Auto) [place] # (Auto) Eos # (Auto) Baso # (Auto) WBC Differential Differential Comment Sodium 143 Potassium 3.7 D Chloride 106 Carbon Dioxide 27.5 Anion Gap 10 BUN 4 L Creatinine 0.57 Estimated GFR Greater than 89 Random Glucose 97 Calcium 7.6 L Total Bilirubin 0.9 AST 93 H ALT 28 Alkaline Phosphatase 73 Total Protein 7.3 D Albumin 3.3 L D Lipase 486 H Stl C.difficile DNA Amp St C. diff Tox Epid 027 Assessment and Plan - Plan A/P - diffuse colitis/ pancreatitis- improving. start on clear liquid diet- continue with antibiotics and supportive care including IV fluid, pain control and antiemetics as needed- stool fo c-diff negative. GI consult appreciated. might need colonoscopy if diarrhea persists. -alcohol abuse; stared on CIWA protocol- continue with vitamin supplements. will taper down librium-counselled on drinking cessation. Discharge Planning: home when w/u completed and clinically improved.
[2017-12-22 10:31] VITALS: O2SAT 97
--- NOTE | 2017-12-22 11:01 | P.PNGI ---
Subjective Interval history: Patient still lying in bed, seems to be agitated, a little bit shaky, still complaining of abdominal discomfort asking for food Physical Exam Vital signs: Vital Signs 12/21/17 12:00 12/21/17 16:00 12/21/17 20:00 Temperature 98.7 F 98.7 F 98.4 F Pulse Rate 75 72 69 Respiratory Rate 20 20 20 Blood Pressure 130/76 131/82 136/74 Pulse Oximetry 98 97 98 12/22/17 00:00 12/22/17 08:00 Temperature 98.1 F 96.8 F L Pulse Rate 70 71 Respiratory Rate 20 20 Blood Pressure 135/75 99/56 L Pulse Oximetry 99 97 Intake & Output 12/21/17 12/22/17 12/22/17 18:59 06:59 18:59 Intake Total 840 / 840 400 / 400 1050 / 1050 Balance 840 / 840 400 / 400 1050 / 1050 Weight 61 kg Intake: IV 840 / 840 400 / 400 1050 / 1050 NS Inj 1,000 ML @ 100 mls/hr IV 640 / 640 200 / 200 950 / 950 .CONT .Q10H R[facility] Rx#:[id number] Zosyn 4.5 GM Premix 4.5 gm In 200 / 200 200 / 200 100 / 100 100 ml @ 200 mls/hr IV.SIG Q6H RUTH Rx#:[id number] Oral 0 / 0 0 / 0 Other: # Voids 5 2 Date of Last Bowel Movement 12/21/17 12/22/17 # Bowel Movements 5 4 - Constitutional no acute distress - Routine HEENT Exam Head: Present: normocephalic, atraumatic Eye: Present: EOMI, PERRL - Routine Neck Exam Present: supple, full ROM - Routine Respiratory Exam Present: CTA bilaterally - Routine Cardiovascular Exam Present: RRR, S1, S2 - Routine Abdominal Exam Present: soft, normoactive bowel sounds, tenderness (Mostly upper abdomen and midepigastric area) - Routine Exam Patient deferred: external exam - Routine Extremities Exam Present: full ROM Results - Labs CBC & Chem 7: 12/22/17 07:15 12/22/17 07:15 Laboratory Results - last 24 hr 12/21/17 12/22/17 12/22/17 15:15 07:15 07:15 CBC w Diff Auto diff final WBC 4.8 RBC 3.35 L Hgb 12.1 Hct 35.4 MCV 105.7 H MCH 36.3 H MCHC 34.3 RDW 14.1 Plt Count 145 L MPV 7.9 Neut % (Auto) 55.7 Lymph % (Auto) 34.6 [place] % (Auto) 5.5 Eos % (Auto) 3.6 Baso % (Auto) 0.6 Neut # (Auto) 2.7 Lymph # (Auto) 1.6 [place] # (Auto) 0.3 Eos # (Auto) 0.2 Baso # (Auto) 0.0 WBC Differential . Differential Comment . Sodium 143 Potassium 3.7 D Chloride 106 Carbon Dioxide 27.5 Anion Gap 10 BUN 4 L Creatinine 0.57 Estimated GFR Greater than 89 Random Glucose 97 Calcium 7.6 L Total Bilirubin 0.9 AST 93 H ALT 28 Alkaline Phosphatase 73 Total Protein 7.3 D Albumin 3.3 L D Lipase 486 H Stl C.difficile DNA Amp Negative St C. diff Tox Epid 027 Negative Microbiology 12/21/17 15:15 Stool Enteric Pathogens (PCR) - Final No enteric pathogens detected by PCR (No Salmonella sp., Shigella sp., Campylobacter sp., Yersinia enterocolitica, Vibrio sp., Norovirus, or EHEC (Shiga Toxin 1 or Shiga Toxin 2) detected. Assessment and Plan - Plan Patient is 52-year-old lady with alcohol induced pancreatitis, patient still having abdominal discomfort, enzymes still elevated, she is shaky and agitated most likely related to alcohol withdrawal Recommendation Keep n.p.o., continue hydration, continue pain medicine as needed Watch for DT No alcohol
[2017-12-22 16:15] VITALS: BP 120/72; PULSE 84; TEMP 97.5
== END 2017-12-22 20:10 | disposition left against medical advice (07) ==
LOC: PHED 19:46 → PHEDA 12-21 01:49 → PH3 12-21 02:21
PROVIDERS: ADMIT Internal Medicine; ATTEND Internal Medicine